=== PATIENT | female | born 1945 | race Caucasian/White ===

== ENCOUNTER 2017-09-07 12:24 | Emergency (ER) | payer OTHER ==
[2017-09-07 13:13] VITALS: BP 146/59; PULSE 74; TEMP 98.5; BMI 21.9
--- NOTE | 2017-09-07 13:44 | PDOC ---
History of Present Illness - General Chief Complaint: Toothache Stated Complaint: EAR PAIN Time Seen by Provider: 09/07/17 13:40 History Source: Patient Exam Limitations: No Limitations - History of Present Illness Initial Comments: 09/07/17 14:07 c/op qworsening paijn to lower right jaw/ molars. Has extensive dental issue/ pain from months of upper denture incorrect placements. States has had multiple visits to orhtodontist/ but now lower teeth are becoming painful. With particular tenderness along lower first right molar\. No fevers/ no recent dental injury. Has been using 600mg Ibuprofen Timing/Duration: unsure Associated Symptoms: reports: denies symptoms, fever/chills Past History - Travel Traveled outside of the country in the last 30 days: No Close contact w/someone who was outside of country & ill: No - Past Medical History Allergies/Adverse Reactions: Allergies Allergy/AdvReac Type Severity Reaction Status Date / Time No Known Allergies Allergy Verified 09/07/17 13:08 Home Medications: Ambulatory Orders Aspirin Coated [Ecotrin -] 81 mg PO DAILY 10/13/15 Atorvastatin Ca [Lipitor] 20 mg PO HS 10/13/15 Bupropion HCl [Wellbutrin Xl -] 300 mg PO DAILY 10/13/15 Fluoxetine HCl 40 mg PO DAILY 10/13/15 Metoprolol Succinate [Toprol XL -] 25 mg PO DAILY 10/13/15 Clindamycin [Cleocin -] 300 mg PO TID #21 capsule 09/07/17 Naproxen [Naprosyn -] 500 mg PO TID #30 tablet 09/07/17 Cardiac Disorders: Yes (TACHYCARDIA) GI Disorders: Yes Hypercholesterolemia: Yes - Surgical History Appendectomy: Yes Orthopedic Surgery: Yes (RT ANKLE SX) - Suicide/Smoking/Psychosocial Hx Smoking Status: Yes Smoking History: Former smoker Have you smoked in the past 12 months: No Number of Cigarettes Smoked Daily: 0 If you are a former smoker, when did you quit?: 1991 Information on smoking cessation initiated: No Hx Alcohol Use: No Drug/Substance Use Hx: No Substance Use Type: None Review of Systems - Review of Systems Able to Perform ROS?: Yes Is the patient limited Syriac proficient: Yes Constitutional: Yes: Symptoms Reported, See HPI, Malaise HEENTM: Yes: Symptoms Reported, See HPI, Ear Pain, Mouth Pain, Mouth Swelling Respiratory: No: Symptoms reported Cardiac (ROS): No: Symptoms Reported ABD/GI: No: Symptoms Reported : No: Symptoms Reported Integumentary: No: Symptoms Reported All Other Systems: Reviewed and Negative *Physical Exam - Vital Signs Last Vital Signs Temp Pulse Resp BP Pulse Ox 98.5 F 74 16 146/59 99 09/07/17 12:55 09/07/17 12:55 09/07/17 12:55 09/07/17 12:55 09/07/17 12:55 - Physical Exam General Appearance: Yes: Nourished, Appropriately Dressed, Apparent Distress, Mild Distress HEENT: positive: EOMI, JEANNE, Normal ENT Inspection, TMs Normal, Pharynx Normal, Nasal Congestion, Rhinorrhea. negative: Sinus Tenderness Neck: positive: Supple, Lymphadenopathy (R), Lymphadenopathy (L). negative: Tender Respiratory/Chest: positive: Lungs Clear, Normal Breath Sounds Gastrointestinal/Abdominal: positive: Soft. 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 NML intact, Fully Oriented, Alert, Normal Mood/ Affect, Normal Response, Motor Strength 5/5 *DC/Admit/Observation/Transfer Diagnosis at time of Disposition: Toothache - Discharge Dispostion Disposition: HOME Condition at time of disposition: Stable Decision to Admit order: No - Referrals Referrals: Eriberto Conteh MD [Primary Care Provider] - - Patient Instructions Printed Discharge Instructions: DI for Dental Pain Additional Instructions: Rest, drink lots of fluids: Teas, water, soups Saltwater gargles/ keep mouth clean and rinse after each meal May use wet teabag for pain relief to area Avoid hard chewing foods, stick to ice cream, Jell-O, yogurt etc. Tylenol or Motrin for fever and pain Complete all medication as prescribed Seek dental appointment as soon as possible for evaluation of dental injury/pain Followup with private physician in one to 2 days as needed Return to emergency department for worsened symptoms, fevers, swelling to face or worsened pain - Post Discharge Activity Forms/Work/School Notes: Back to Work
== END 2017-09-07 14:22 | disposition home or self-care (01) ==
LOC: JERFT 12:24
DX: K08.89 Other specified disorders of teeth and supporting structures (principal); E78.00 Pure hypercholesterolemia, unspecified; Z86.19 Personal history of other infectious and parasitic diseases; Z86.79 Personal history of other diseases of the circulatory system
CPT/HCPCS: 99281-25

== ENCOUNTER 2018-01-21 11:22 | Inpatient (IN) | payer OTHER ==
[2018-01-21 11:32] VITALS: BMI 19.6
[2018-01-21] MEDS ORDERED: ASPIRIN 81 MG CHEWABLE TABLETS PO ONE (11:44)
--- NOTE | 2018-01-21 11:44 | PDOC ---
History of Present Illness - General Chief Complaint: Chest Pain Stated Complaint: CHEST PAIN, SOB Time Seen by Provider: 01/21/18 11:44 History Source: Patient Exam Limitations: No Limitations - History of Present Illness Initial Comments: 01/21/18 11:54 72y F hx of CAD sp cath in 10/2017, HL, deperssion sent to the ED byd Dr. barragan for evaluation for sob and cp. s with sob x 1 month and cp x 2 weeks. The sob is constant, and worsens with exertion. pt notes her CP is constant, substernal and causes her pain. Does not seem to wrosen with exertion. Pt notes this started after her stent but never had these syp,toms prior to her stent. pt denies any fever/chills, cough, vomiting, diaphoresis, hemoptysis, leg swelling. . Pt notes her symptoms seem to be gradually getting worse PMD: Yady Card: Alexandra Past History - Past Medical History Allergies/Adverse Reactions: Allergies Allergy/AdvReac Type Severity Reaction Status Date / Time No Known Allergies Allergy Verified 01/21/18 11:27 Home Medications: Ambulatory Orders Aspirin Coated [Ecotrin -] 81 mg PO DAILY 10/13/15 Atorvastatin Ca [Lipitor] 80 mg PO HS 10/13/15 Bupropion HCl [Wellbutrin Xl -] 300 mg PO DAILY 10/13/15 Fluoxetine HCl 40 mg PO DAILY 10/13/15 Metoprolol Succinate [Toprol XL -] 25 mg PO DAILY 10/13/15 Ticagrelor [Brilinta] 90 mg PO 01/21/18 Cardiac Disorders: Yes (TACHYCARDIA) COPD: No GI Disorders: Yes Hypercholesterolemia: Yes Psychiatric Problems: Yes (depression/anxiety) - Surgical History Appendectomy: Yes Cardiac Surgery: (stent) Orthopedic Surgery: Yes (RT ANKLE SX) - Immunization History Immunization Up to Date: Yes - Suicide/Smoking/Psychosocial Hx Smoking Status: Yes Smoking History: Never smoked Have you smoked in the past 12 months: No Number of Cigarettes Smoked Daily: 0 If you are a former smoker, when did you quit?: 1991 Information on smoking cessation initiated: No Hx Alcohol Use: No Drug/Substance Use Hx: No Substance Use Type: None Hx Substance Use Treatment: No Review of Systems - Review of Systems Able to Perform ROS?: Yes Comments:: 01/21/18 12:08 Constitutional - no reported Fever, Chills, HEENT: no reported vision changes, sore throat Respiratory: = sob, RICHARD no reported cough, hemoptysis Cardiac: + chest pain no reported , palpitations, light headedness, leg swelling Abd/GI: no reported abd pain, nausea, vomiting, blood per rectum, melena, diarrhea : no reported dysuria, frequency, discharge Musculskelatal - no reported back pain, joint swelling skin - no reported bruising, erythema, rash neurological: no reported headache, numbness, focal weakness, tingling, ataxia, hematologic: no reported easy bruising, easy bleeding *Physical Exam - Vital Signs Last Vital Signs Temp Pulse Resp BP Pulse Ox 97.7 F 94 H 16 133/87 100 01/21/18 11:27 01/21/18 12:18 01/21/18 12:10 01/21/18 12:10 01/21/18 12:18 - Physical Exam Comments: 01/21/18 12:09 GENERAL: The patient is awake, alert, and fully oriented, Nontoxic - in no acute distress. HEAD: Normocephalic, atraumatic. EYES: extraocular movements intact, sclera anicteric, conjunctiva clear. ENT: Normal voice, Moist mucous membranes. NECK: Normal range of motion, supple LUNGS: Breath sounds equal, clear to auscultation bilaterally. No wheezes, no rhonchi, no rales. HEART: Regular rate and rhythm, normal S1 and S2 without murmur, rub or gallop. ABDOMEN: Soft, nontender, No guarding, no rebound. . No CVA tenderness EXTREMITIES: Normal range of motion, no edema. negative Homans b/l NEUROLOGICAL: No facial assymetry, Normal speech, PSYCH: Normal mood, normal affect. SKIN: Warm, Dry, normal turgor, Heart Score/ECG Review - ECG Impressions Comment:: 01/21/18 13:46 Twelve-lead EKG was performed and reviewed by me. There is normal sinus rhythm with a rate of 103 The axis is normal. Nonspecific ST-T wave changes ED Treatment Course - LABORATORY CBC & Chemistry Diagram: 01/21/18 12:06 01/21/18 12:06 - ADDITIONAL ORDERS Additional order review: Laboratory Results 01/21/18 01/21/18 12:06 12:06 PT with INR 11.00 INR 0.93 Sodium 140 Potassium 4.3 Chloride 108 H Carbon Dioxide 18 L Anion Gap 15 BUN 15 Creatinine 1.2 Creat Clearance w eGFR 44.16 Random Glucose 81 Calcium 9.8 Magnesium 1.9 Total Bilirubin 0.6 AST 21 ALT 25 Alkaline Phosphatase 118 H Creatine Kinase 85 Troponin I < 0.02 Total Protein 6.9 Albumin 3.8 01/21/18 12:06 RBC 4.42 MCV 90.4 MCHC 32.2 RDW 14.8 MPV 8.7 Neutrophils % 78.5 D Lymphocytes % 10.8 D Monocytes % 7.2 Eosinophils % 2.9 Basophils % 0.6 - RADIOLOGY Radiology Studies Ordered: Category Date Time Status CHEST PA & LAT [RAD] Stat Radiology 01/21/18 11:44 Taken - Medications Given in the ED: ED Medications Discontinued Medications Generic Name Dose Route Start Last Admin Trade Name Freq PRN Reason Stop Dose Admin Albuterol Sulfate 1 amp 01/21/18 12:10 01/21/18 12:30 Ventolin 0.083% Nebulizer Soln - NEB 01/21/18 12:11 1 amp ONCE ONE Administration Aspirin 162 mg 01/21/18 11:44 01/21/18 12:30 Asa - PO 01/21/18 11:45 162 mg ONCE ONE Administration Medical Decision Making - Medical Decision Making 01/21/18 13:41 trops neg will consult cardiology will admit for further management 01/21/18 13:[address] castillo agree admission for further management of sob, cp Case discussed in detail with admitting physician including history, physical exam and ancillary studies. Admitting physician has assumed care for the patient, will follow all pending diagnostics and will complete the evaluation and treatment. *DC/Admit/Observation/Transfer Diagnosis at time of Disposition: Shortness of breath Chest pain Qualifiers: Chest pain type: unspecified Qualified Code(s): R07.9 - Chest pain, unspecified - Discharge Dispostion Condition at time of disposition: Guarded Decision to Admit order: Yes - Referrals Referrals: Eriberto Castillo MD [Primary Care Provider] - - Patient Instructions - Post Discharge Activity
[2018-01-21] MEDS ORDERED: ALBUTEROL SO4 0.083% IH SOL 2.5 MG/3 ML VIAL.NEB. NEB ONE ×2 (12:10→12:25)
[2018-01-21 12:13] LABS: BASO % 0.6 % (0-2.0); EOS % 2.9 % (0-4.5); HEMATOCRIT 39.9 % (32.4-45.2); HEMOGLOBIN 12.9 GM/dL (10.7-15.3); LYMPH % 10.8 % (8-40); MCH 29.1 pg (25.7-33.7); MCHC 32.2 g/dl (32.0-36.0); MEAN CELL VOLUME 90.4 fl (80-96); MEAN PLT VOLUME 8.7 fl (7.5-11.1); MONO % 7.2 % (3.8-10.2); NEUT % 78.5 % (42.8-82.8); PLATELET COUNT 319 K/MM3 (134-434); RBC 4.42 M/mm3 (3.60-5.2); RDW 14.8 % (11.6-15.6); WHITE BLOOD COUNT 9.3 K/mm3 (4.0-10.0)
[2018-01-21] MEDS ORDERED: ASPIRIN 81 MG CHEWABLE TABLETS ONE (12:25)
[2018-01-21 12:41] LABS: INR 0.93 (0.83-1.09)
[2018-01-21 12:54] LABS: ALBUMIN 3.8 g/dl (3.4-5.0); ALK PHOS 118 U/L (45-117); ANION GAP 15 MMOL/L (8-16); BILIRUBIN,TOTAL 0.6 mg/dL (0.2-1); BLOOD UREA NITROGEN 15 mg/dL (7-18); CALCIUM 9.8 mg/dL (8.5-10.1); CHLORIDE 108 mmol/L (98-107); CO2 18 mmol/L (21-32); CREATININE 1.2 mg/dL (0.55-1.3); GLUCOSE,RANDOM 81 mg/dL (74-106); MAGNESIUM 1.9 mg/dL (1.8-2.4); POTASSIUM 4.3 mmol/L (3.5-5.1); SGOT/AST 21 U/L (15-37); SGPT/ALT 25 U/L (13-61); SODIUM 140 mmol/L (136-145); TOT PROT 6.9 g/dl (6.4-8.2)
--- NOTE | 2018-01-21 15:09 | CON.CARD ---
Consult Consult Specialty:: Cardiology Referred by:: Dr Conteh Reason for Consultation:: chest pain - History of Present Illness Chief Complaint: chest pain History of Present Illness: She is a 72 year old female with a PMH significant for HLD, HTN, CAD s/p NStemi 10/25/17 transferred to [facility] for cath underwent JOYCE to RCA 10/26/17, tremor who has been having several weeks of continuous chest pain, retrosternal non exertional , non radiating without change from position, inspiration or paluation as well as difficulty breathing that is also nonexertional. No fever, chills, cough or sputum. Echo 10/25/17 normal EF. - History Source History Provided By: Patient, Medical Record - Alcohol/Substance Use Hx Alcohol Use: No - Smoking History Smoking history: Never smoked Have you smoked in the past 12 months: No Aproximately how many cigarettes per day: 0 If you are a former smoker, when did you quit?: 1991 Home Medications - Allergies Allergies/Adverse Reactions: Allergies Allergy/AdvReac Type Severity Reaction Status Date / Time No Known Allergies Allergy Verified 01/21/18 11:27 - Home Medications Home Medications: Ambulatory Orders Aspirin Coated [Ecotrin -] 81 mg PO DAILY 10/13/15 Atorvastatin Ca [Lipitor] 80 mg PO HS 10/13/15 Bupropion HCl [Wellbutrin Xl -] 300 mg PO DAILY 10/13/15 Fluoxetine HCl 40 mg PO DAILY 10/13/15 Metoprolol Succinate [Toprol XL -] 25 mg PO DAILY 10/13/15 Ticagrelor [Brilinta] 90 mg PO DAILY 01/21/18 Vital Signs: Vital Signs Temperature 97.7 F 01/21/18 11:27 Pulse Rate 94 H 01/21/18 12:18 Respiratory Rate 16 01/21/18 12:10 Blood Pressure 133/87 01/21/18 12:10 O2 Sat by Pulse Oximetry (%) 100 01/21/18 12:18 - Other Data Labs, Other Data: CBC, BMP 01/21/18 12:06 01/21/18 12:06 INR, PTT INR 0.93 (0.83-1.09) 01/21/18 12:06 Troponin, BNP 01/21/18 12:06 Troponin I < 0.02 Troponin, BNP 01/21/18 12:06 Troponin I < 0.02 Imaging - Results Chest X-ray: Report Reviewed EKG: Report Reviewed (no change from 10/25/17) Assessment/Plan She is a 72 year old female with a PMH significant for HLD, HTN, CAD s/p NSTEMI 10/25/17 transferred to [facility] for cath underwent JOYCE to RCA 10/26/17, tremor who has been having several weeks of continuous chest pain, retrosternal non exertional , non radiating without change from position, inspiration or paluation as well as difficulty breathing that is also nonexertional. No fever, chills, cough or sputum. Echo 10/25/17 normal EF. Plan: 1. CAD-continue asa and plavix. Her chest pain is atypical for angina, first set kobe negative. -low risk given the chronicity of symptoms. -ECG is abnormal but unchanged. -continue outpatient regimen for now. -she has 50% stenosis of the LAD, continue statin. 2. shortness of breath- CXR and pro bnp unremarkable, no evidence of CHF. -consider pulm eval and CTA
[2018-01-21 16:23] LABS: ALBUMIN 3.5 g/dl (3.4-5.0); ALK PHOS 107 U/L (45-117); ANION GAP 10 MMOL/L (8-16); BILIRUBIN,TOTAL 0.6 mg/dL (0.2-1); BLOOD UREA NITROGEN 17 mg/dL (7-18); CALCIUM 9.3 mg/dL (8.5-10.1); CHLORIDE 106 mmol/L (98-107); CO2 23 mmol/L (21-32); CREATININE 1.2 mg/dL (0.55-1.3); GLUCOSE,RANDOM 107 mg/dL (74-106); N-TERMINAL BNP 223.3 pg/ml (5-125); POTASSIUM 3.8 mmol/L (3.5-5.1); SGOT/AST 19 U/L (15-37); SGPT/ALT 23 U/L (13-61); SODIUM 138 mmol/L (136-145); TOT PROT 6.5 g/dl (6.4-8.2)
[2018-01-21] MEDS: ATORVASTATIN CA 80 MG TABLET (FP) PO SCH (21:50)
[2018-01-22] MEDS ORDERED: ACETAMINOPHEN 325 MG TABLET (FP) ONE (02:40)
[2018-01-22] MEDS ORDERED: ACETAMINOPHEN 650 MG/20.3 ML ORAL SOLUTION (CUPS) PO ONE (02:42)
[2018-01-22 06:47] LABS: BASO % 0.8 % (0-2.0); EOS % 3.5 % (0-4.5); HEMATOCRIT 36.3 % (32.4-45.2); HEMOGLOBIN 11.9 GM/dL (10.7-15.3); MCH 29.4 pg (25.7-33.7); MCHC 32.8 g/dl (32.0-36.0); MEAN CELL VOLUME 89.6 fl (80-96); MEAN PLT VOLUME 9.1 fl (7.5-11.1); MONO % 10.3 % (3.8-10.2); NEUT % 68.4 % (42.8-82.8); PLATELET COUNT 272 K/MM3 (134-434); RBC 4.05 M/mm3 (3.60-5.2); RDW 14.3 % (11.6-15.6); WHITE BLOOD COUNT 9.6 K/mm3 (4.0-10.0)
--- NOTE | 2018-01-22 08:55 | HP ---
Admitting History and Physical - Admission History of Present Illness: 72 year old female with a PMH significant for HLD, HTN, CAD s/p NStemi 10/25/17 transferred to [facility] for cath underwent JOYCE to RCA 10/26/17, tremor who has been having several weeks of continuous chest pain, retrosternal non exertional, non radiating without change from position, inspiration or paluation as well as difficulty breathing that is also nonexertional. No fever, chills, cough or sputum. Echo 10/25/17 normal EF. - Past Medical History Cardiovascular: Yes: CAD (50% lad), HTN, Hyperlipdemia Pulmonary: Yes: COPD - Smoking History Smoking history: Never smoked Have you smoked in the past 12 months: No Aproximately how many cigarettes per day: 0 If you are a former smoker, when did you quit?: 1991 - Alcohol/Substance Use Hx Alcohol Use: No Home Medications - Allergies Allergies/Adverse Reactions: Allergies Allergy/AdvReac Type Severity Reaction Status Date / Time No Known Allergies Allergy Verified 01/21/18 11:27 - Home Medications Home Medications: Ambulatory Orders Aspirin Coated [Ecotrin -] 81 mg PO DAILY 10/13/15 Atorvastatin Ca [Lipitor] 80 mg PO HS 10/13/15 Bupropion HCl [Wellbutrin Xl -] 300 mg PO DAILY 10/13/15 Fluoxetine HCl 40 mg PO DAILY 10/13/15 Metoprolol Tartrate [Lopressor -] 25 mg PO BID 01/21/18 Ticagrelor [Brilinta] 90 mg PO BID 01/21/18 Review of Systems - Review of Systems Constitutional: reports: Weakness Cardiovascular: reports: Chest Pain Respiratory: reports: SOB, SOB on Exertion Gastrointestinal: reports: Nausea. denies: Abdominal Pain Genitourinary: reports: No Symptoms Musculoskeletal: reports: Muscle Weakness Neurological: reports: Tremors, Weakness Physical Examination Vital Signs: Vital Signs Temperature 98.7 F 01/22/18 08:46 Pulse Rate 77 01/22/18 08:46 Respiratory Rate 19 01/22/18 08:46 Blood Pressure 121/58 L 01/22/18 08:46 O2 Sat by Pulse Oximetry (%) 100 01/22/18 08:46 Cardiovascular: Yes: Murmur, S1, S2 Respiratory: Yes: Regular, CTA Bilaterally Gastrointestinal: Yes: Normal Bowel Sounds, Soft Edema: No Neurological: Yes: Alert, Oriented, Tremors, Unsteady Gait, Weakness Labs: CBC, BMP 01/22/18 05:30 01/21/18 15:23 Problem List - Problems (1) CAD (coronary artery disease) Assessment/Plan: -Cradio consult noted -Follow CE 2 sets neg -Echo -Same meds Code(s): I25.10 - ATHSCL HEART DISEASE OF [place] CORONARY ARTERY W/O ANG PCTRS (2) HLD (hyperlipidemia) Assessment/Plan: -Lipitor 80 -Pt ran out of meds--compliance stressed Code(s): E78.5 - HYPERLIPIDEMIA, UNSPECIFIED (3) Tremors of nervous system Assessment/Plan: -TFT -NEURO Code(s): R25.1 - TREMOR, UNSPECIFIED (4) Weakness Assessment/Plan: -PT Eval Code(s): R53.1 - WEAKNESS (5) Chest pain Assessment/Plan: -cardio noted -Monitor on tele -Add Ranexa Code(s): R07.9 - CHEST PAIN, UNSPECIFIED Qualifiers: Chest pain type: unspecified Qualified Code(s): R07.9 - Chest pain, unspecified (6) COPD (chronic obstructive pulmonary disease) Assessment/Plan: -add Symbocort -PULM Code(s): J44.9 - CHRONIC OBSTRUCTIVE PULMONARY DISEASE, UNSPECIFIED
[2018-01-22] MEDS: FLUoxetine HCL 20 MG CAPSULE (FP) PO SCH (09:48)
[2018-01-22] MEDS: TICAGRELOR 90 MG TABLET PO SCH ×3 (09:48→22:19)
[2018-01-22] MEDS: METOPROLOL TARTRATE 25 MG TABLET (FP) PO SCH ×3 (09:48→21:38)
[2018-01-22] MEDS: ASPIRIN COATED 81 MG TABLET.EC PO SCH (09:48)
[2018-01-22] MEDS ORDERED: TICAGRELOR 90 MG TABLET PO SCH (10:00)
[2018-01-22] MEDS ORDERED: metoPROLOL SUCCINATE 25 MG TAB.SR.24H (FP) PO SCH (10:00)
--- NOTE | 2018-01-22 10:10 | PN ---
Progress Note, Physician Chief Complaint: still with sob, constant chest pain telemetry nsr History of Present Illness: She is a 72 year old female with a PMH significant for HLD, HTN, CAD s/p NStemi 10/25/17 transferred to [facility] for cath underwent JOYCE to RCA 10/26/17, tremor who has been having several weeks of continuous chest pain, retrosternal non exertional , non radiating without change from position, inspiration or paluation as well as difficulty breathing that is also nonexertional. No fever, chills, cough or sputum. Echo 10/25/17 normal EF. CTA 01/21/18 no PE. +interstitial markings and ground glass appearance. - Current Medication List Current Medications: Active Medications Aspirin (Ecotrin -) 81 mg PO DAILY [facility] Last Admin: 01/22/18 09:48 Dose: 81 mg Atorvastatin Calcium (Lipitor -) 80 mg PO HS [facility] Last Admin: 01/21/18 21:50 Dose: 80 mg Budesonide/Formoterol Fumarate (Symbicort 160/4.5mcg -) 2 puff IH BID [facility] Bupropion HCl (Wellbutrin Xl -) 300 mg PO DAILY [facility] Last Admin: 01/22/18 09:48 Dose: 300 mg Fluoxetine HCl (Prozac -) 40 mg PO DAILY [facility] Last Admin: 01/22/18 09:48 Dose: 40 mg Metoprolol Tartrate (Lopressor -) 25 mg PO BID [facility] Last Admin: 01/22/18 09:48 Dose: 25 mg Ranolazine (Ranexa -) 500 mg PO BID [facility] Ticagrelor (Brilinta -) 90 mg PO BID [facility] Last Admin: 01/22/18 09:48 Dose: 90 mg - Objective Vital Signs: Vital Signs Temperature 98.7 F 01/22/18 08:46 Pulse Rate 77 01/22/18 08:46 Respiratory Rate 19 01/22/18 08:46 Blood Pressure 121/58 L 01/22/18 08:46 O2 Sat by Pulse Oximetry (%) 100 01/22/18 08:46 Constitutional: Yes: No Distress, Calm Eyes: Yes: EOM Intact HENT: Yes: Normocephalic Neck: Yes: Trachea Midline Cardiovascular: Yes: Regular Rate and Rhythm Respiratory: Yes: CTA Bilaterally Gastrointestinal: Yes: Normal Bowel Sounds, Soft Musculoskeletal: Yes: WNL Extremities: Yes: WNL Edema: No Peripheral Pulses WNL: Yes Labs: CBC, BMP 01/22/18 05:30 01/21/18 15:23 INR, PTT INR 0.93 (0.83-1.09) 01/21/18 12:06 Assessment/Plan She is a 72 year old female with a PMH significant for HLD, HTN, CAD s/p NSTEMI 10/25/17 transferred to [facility] for cath underwent JOYCE to RCA 10/26/17, tremor who has been having several weeks of continuous chest pain, retrosternal non exertional , non radiating without change from position, inspiration or paluation as well as difficulty breathing that is also nonexertional. No fever, chills, cough or sputum. Echo 10/25/17 normal EF. Plan: 1. CAD-continue asa and plavix. Her chest pain is atypical for angina, first set kobe negative. -low risk given the chronicity of symptoms. -ECG is abnormal but unchanged. -continue outpatient regimen for now. -she has 50% stenosis of the LAD, continue statin. -kobe negative for ACS. No need for telemetry monitoring. 2. shortness of breath- CXR and pro bnp unremarkable, no evidence of CHF. -consider pulm eval -CTA negative for PE.
--- NOTE | 2018-01-22 10:45 | EKG ---
Test Reason : Blood Pressure : / mmHG Vent. Rate : 103 BPM Atrial Rate : 103 BPM P-R Int : 122 ms QRS Dur : 078 ms QT Int : 352 ms P-R-T Axes : 069 082 067 degrees QTc Int : 461 ms POOR DATA QUALITY, INTERPRETATION MAY BE ADVERSELY AFFECTED SINUS TACHYCARDIA POSSIBLE LEFT ATRIAL ENLARGEMENT NONSPECIFIC ST AND T WAVE ABNORMALITY ABNORMAL ECG Confirmed by Lyle Goddard MD ([id number]) on 01/22/2018 10:45:09 AM Referred By: Confirmed By:Lyle Goddard MD
[2018-01-22] MEDS: BUDESONIDE/FORMETEROL FUMARATE 160/4.5 mcg INHALER IH SCH ×2 (11:09→21:39)
[2018-01-22] MEDS: RANOLAZINE E.R. 500 MG TABLET (FP) PO SCH ×2 (11:10→21:38)
--- NOTE | 2018-01-22 13:25 | ECHO ---
Name: EUSEBIO CARABALLO Exam:Adult Echocardiogram Study Date: 01/22/2018 12:22 PM Age: 72 yrs Reason For Study: CAD SOB Height: 61 in Weight: 104 lb BSA: 1.4 m2 MMode/2D Measurements & Calculations IVSd: 0.78 cm Ao root diam: 2.6 cm LVIDd: 4.0 cm LA dimension: 3.1 cm LVIDs: 2.9 cm LVPWd: 0.73 cm EDV(Teich): 71.8 ml TAPSE: 1.9 cm ESV(Teich): 30.9 ml RV S Sharif: 12.8 cm/sec Doppler Measurements & Calculations MV E max sharif: 52.0 cm/sec Ao V2 max: 110.5 cm/sec MV A max sharif: 81.0 cm/sec Ao max P.9 mmHg MV E/A: 0.64 MV dec time: 0.23 sec LV V1 max P.4 mmHg TR max sharif: 205.2 cm/sec LV V1 max: 59.3 cm/sec TR max P.9 mmHg PI end-d sharif: 120.2 cm/sec Med Peak E' Sharif: 5.3 cm/sec Med E/e': 9.7 Lat Peak E' Sharif: 6.2 cm/sec Lat E/e': 8.4 Procedure A complete two-dimensional transthoracic echocardiogram was performed (2D, M-mode, Doppler and color flow Doppler). Left Ventricle The left ventricular size, thickness and function are normal. Ejection Fraction = 65%. The transmitra l spectral Doppler flow pattern is suggestive of impaired LV relaxation. The left ventricular wall jozef on is normal. Right Ventricle The right ventricle is normal in size and function. Atria Normal left and right atrial size and function. Mitral Valve The mitral valve is grossly normal. There is trace mitral regurgitation. Tricuspid Valve The tricuspid valve is normal. There is trace tricuspid regurgitation. Right ventricular systolic pre ssure is 16.9 mmhg. Aortic Valve There is trivial aortic sclerosis.;. Pulmonic Valve The pulmonic valve is not well seen, but is grossly normal. Great Vessels The aortic root is normal size. Pericardium/Pleura There is no pericardial effusion. There is no pleural effusion. Interpretation Summary Compared to the prior echo report on 10/25/17, there is no significant change. The left ventricular siz e, thickness and function are normal Ejection Fraction = 65%. There is trace mitral regurgitation. There is trace tricuspid regurgitation. Right ventricular systolic pressure is 16.9 mmhg. MD Lyle Goddard 01/22/2018 01:25 PM
--- NOTE | 2018-01-22 13:36 | CONSULT ---
Consult Consult Specialty:: PM&R - History of Present Illness History of Present Illness: This is a 72 year old woman with a medical history of CAD, NSTEMI 10/25/17, HTN, HLD, tremor, who presented to the ED 01/21/18 with continuous retrosternal chest pain and SOB. 01/22/18 echo was stable compared to 10/25/17, with EF 65%. CTA chest showed moderate chronic lung disease without acute pathology, and CT head showed no acute pathology with moderate atrophy and minimal periventricular chronic microvascular ischemic disease. She was admitted to the ICU for further work-up. Physiatry is being consulted for further recommendations. - Past Medical History Cardio/Vascular: Yes: CAD (50% lad), HTN, Hyperlipdemia Pulmonary: Yes: COPD - Alcohol/Substance Use Hx Alcohol Use: No - Smoking History Smoking history: Never smoked Have you smoked in the past 12 months: No Aproximately how many cigarettes per day: 0 If you are a former smoker, when did you quit?: 1991 - Social History Usual Living Arrangement: Alone (lives alone in senior building without stairs to elevator) ADL: Independent (Independent in ADLs/ IADLs without AD) Home Medications - Allergies Allergies/Adverse Reactions: Allergies Allergy/AdvReac Type Severity Reaction Status Date / Time No Known Allergies Allergy Verified 01/21/18 11:27 - Home Medications Home Medications: Ambulatory Orders Aspirin Coated [Ecotrin -] 81 mg PO DAILY 10/13/15 Atorvastatin Ca [Lipitor] 80 mg PO HS 10/13/15 Bupropion HCl [Wellbutrin Xl -] 300 mg PO DAILY 10/13/15 Fluoxetine HCl 40 mg PO DAILY 10/13/15 Metoprolol Tartrate [Lopressor -] 25 mg PO BID 01/21/18 Ticagrelor [Brilinta] 90 mg PO BID 01/21/18 Review of Systems Findings/Remarks: denies fevers, chills, changes in vision/ hearing/ mood, abdominal pain, nausea , vomiting, constipation, diarrhea, dysuria, muscle/ joint pain, numbness/ paresthesias. notes resolved CP, improving SOB, and chronic unchanged tremors which improved Physical Exam Vital Signs: Vital Signs Temperature 98.6 F 01/22/18 13:21 Pulse Rate 74 01/22/18 13:21 Respiratory Rate 18 01/22/18 13:21 Blood Pressure 96/78 01/22/18 13:21 O2 Sat by Pulse Oximetry (%) 100 01/22/18 08:46 Musculoskeletal: Yes: Other (General: calm elderly F sitting EOB NAD, able to Sit--> Stand from EOB Independently and ambulate a few feet in room, limited by BP cuff and Telemetry leads N/M: full BUE/ BLE ROM, 4+/5 B HF then 5- /5 BUE/ BLE; Pinprick Intact BUE/ BLE Extremities: no BLE pitting edema, no B calf tenderness) Labs: CBC, BMP 01/22/18 05:30 01/21/18 15:23 Imaging - Results Cat Scan: Report Reviewed (CT head, CTA chest as per HPI) Other: Report Reviewed (01/22/18 echo as per HPI) Assessment/Plan Impression: 1) Deconditioning 2) Chest pain now resolved, with hx CAD, NSTEMI 10/25/17, HTN, HLD and EF 65% 3) SOB improving< with hx COPD 4) hx tremor 5) CT head shows moderate atrophy and minimal periventricular chronic microvascular ischemic disease 6) BMI WNL 7) No recent flu shot/ pneumovax Recommendations: 1) PT for strengthening and functional mobility 2) Cardiopulmonary precautions 3) Falls, safety precautions 4) DVT ppx: encourage ambulation 5) Denies constipation on current bowel regimen 6) Skin protection: float heels, frequent turning 7) Discharge planning: she will likely be able to return home with home services once medically stable, although she is amenable to inpatient rehabilitation if needed Thank you for this referral.
--- NOTE | 2018-01-22 13:56 | CON.PULM ---
Consult Consult Specialty:: PULMONARY Referred by:: Dr. Conteh Reason for Consultation:: shortness of breath - History of Present Illness Chief Complaint: shortness of breath History of Present Illness: 72yo female with h/o HTN, hyperlipidemia, CAD s/p NSTEMI with recent stents who was admitted with chest discomfort and shortness of breath x weeks. Denies cough or wheezing. No fevers, chills or sweats. No sick contacts. Denies any history of asthma or COPD. No occupational exposures. She is a remote smoker, quit 30 years ago. She does report improvement with nebulizer treatments. - History Source History Provided By: Patient, Medical Record Limitations to Obtaining History: No Limitations - Past Medical History Cardio/Vascular: Yes: CAD (50% lad), HTN, Hyperlipdemia Pulmonary: Yes: COPD - Alcohol/Substance Use Hx Alcohol Use: No - Smoking History Smoking history: Never smoked Have you smoked in the past 12 months: No Aproximately how many cigarettes per day: 0 If you are a former smoker, when did you quit?: 1991 - Social History Usual Living Arrangement: Alone (lives alone in senior building without stairs to elevator) ADL: Independent (Independent in ADLs/ IADLs without AD) Home Medications - Allergies Allergies/Adverse Reactions: Allergies Allergy/AdvReac Type Severity Reaction Status Date / Time No Known Allergies Allergy Verified 01/21/18 11:27 - Home Medications Home Medications: Ambulatory Orders Aspirin Coated [Ecotrin -] 81 mg PO DAILY 10/13/15 Atorvastatin Ca [Lipitor] 80 mg PO HS 10/13/15 Bupropion HCl [Wellbutrin Xl -] 300 mg PO DAILY 10/13/15 Fluoxetine HCl 40 mg PO DAILY 10/13/15 Metoprolol Tartrate [Lopressor -] 25 mg PO BID 01/21/18 Ticagrelor [Brilinta] 90 mg PO BID 01/21/18 Review of Systems - Review of Systems Constitutional: reports: Weakness. denies: Chills, Fever Eyes: denies: Recent Change in Vision HENT: denies: Nasal Congestion, Throat Pain Neck: denies: Stiffness, Tenderness Cardiovascular: reports: Chest Pain, Shortness of Breath. denies: Palpitations Respiratory: denies: Cough, Wheezing Gastrointestinal: denies: Abdominal Pain, Nausea, Vomiting Genitourinary: denies: Dysuria, Hematuria Neurological: denies: Dizziness, Headache Endocrine: denies: Unexplained Weight Loss Physical Exam Vital Sings: Vital Signs Temperature 98.6 F 01/22/18 13:21 Pulse Rate 74 01/22/18 13:21 Respiratory Rate 18 01/22/18 13:21 Blood Pressure 96/78 01/22/18 13:21 O2 Sat by Pulse Oximetry (%) 100 01/22/18 08:46 Constitutional: Yes: Calm Eyes: Yes: Conjunctiva Clear, EOM Intact HENT: Yes: Atraumatic, Normocephalic Neck: Yes: Supple, Trachea Midline Cardiovascular: Yes: Regular Rate and Rhythm Respiratory: Yes: Diminished (decreased breath sounds at the bases) ...Clubbing: No Gastrointestinal: Yes: Normal Bowel Sounds, Soft. No: Tenderness Edema: No Neurological: Yes: Alert, Oriented Labs: CBC, BMP 01/22/18 05:30 01/21/18 15:23 Imaging - Results Chest X-ray: Report Reviewed, Image Reviewed Cat Scan: Report Reviewed, Image Reviewed (no infiltrates, chronic lung disease) Problem List - Problems (1) CAD (coronary artery disease) Code(s): I25.10 - ATHSCL HEART DISEASE OF [place] CORONARY ARTERY W/O ANG PCTRS (2) COPD (chronic obstructive pulmonary disease) Code(s): J44.9 - CHRONIC OBSTRUCTIVE PULMONARY DISEASE, UNSPECIFIED (3) Chest pain Code(s): R07.9 - CHEST PAIN, UNSPECIFIED Qualifiers: Chest pain type: unspecified Qualified Code(s): R07.9 - Chest pain, unspecified (4) HLD (hyperlipidemia) Code(s): E78.5 - HYPERLIPIDEMIA, UNSPECIFIED (5) Shortness of breath Code(s): R06.02 - SHORTNESS OF BREATH Assessment/Plan r/o Acute COPD Exacerbation CAD s/p stent HTN Hyperlipidemia - will start short course of empiric steroids given improvement with nebulizer treatments - inhaled bronchodilators standing and PRN - continue cardiac meds - will need outpt PFTs - DVT prophylaxis Thank you for this consult Rodrigo Davenport MD
[2018-01-22] MEDS ORDERED: ALBUTEROL SO4 0.083% IH SOL 2.5 MG/3 ML VIAL.NEB. NEB PRN (13:58)
[2018-01-22] MEDS: methylPREDNISolone NA SUCC 40 MG/1 ML VIAL IVPUSH SCH ×2 (14:51→17:08)
[2018-01-22] MEDS: ALBUTEROL SO4 2.5/IPRATROPIUM 0.5 INH SOL 3 ML VIAL.NEB. NEB SCH ×2 (17:18→21:00)
--- NOTE | 2018-01-22 20:33 | CONSULT ---
Consult - text type - Consultation Consultation Note: NEUROLOGY CONSULTATION is greatly appreciated: This 72 yo RH woman lives alone. PMH sig for HTN, Chol, Osteoporosis, ASHD, s/p ND and s/p Stent (October) and chronic anxiety and depression. Maintained on: Aspirin 81; Atorvastatin; Bupropion 300 mg; Fluoxetine 40 mg; Metoprolol; Ranexa and Ticagrelor. Seen by me 2014 with LBP, leg pain and neck pain. Patient gave h/o chronic tremors at that time. Now patient has had progressive SOB, beginning as exertional dyspnea, started after her ND and stent and has progressed. CTA Neg for PE. Improves with bronchodilators. Now on Ventolyn, Symbicort, Duoneb and solumedrol. CT of head (reviewed): shows mild, diffuse atrophy and microvascular changes. HERON: Thin. No bruits, Cor: Reg. RR=30/min NEURO: Awake, alert. Ox3. Mild OMS with slight diff. with reversals. Recalls 2 of 3 @ 3. No frontal release. Fluent speech. CN: II-XII: Normal Motor: No drift. Severe, rapid (6-8 cps) sustention tremor. No rest tremor or cogwheeling. Normal strength and reflexes. Toes downgoing. Coord: No FTN Dystaxia Sensory: Feels vibration both feet. IMP: Non-focal exam Essential tremor, now increased by steroids and bronchodilators. Suggest: Continue current regimen for dyspnea. Tremor should improve with gradual taper of meds. If it persists, would try Phenobarbital 30 mg qHS. Thank you very much, Singh Menjivar MD
[2018-01-22] MEDS ORDERED: PT OWN MED DRAWER 7, Y5N ONE ×3 (20:44→22:40)
[2018-01-22] MEDS: ATORVASTATIN CA 80 MG TABLET (FP) PO SCH (21:37)
[2018-01-22 22:11] LABS: URINE APPEARANCE CLEAR; URINE BILIRUBIN NEGATIVE (<2.0 mg/dL); URINE COLOR LTYELLOW; URINE GLUCOSE (UA) NEGATIVE (NEGATIVE); URINE KETONE TRACE (NEGATIVE); URINE LEUK ESTERASE TRACE (NEGATIVE); URINE NITRITE NEGATIVE (NEGATIVE); URINE PROTEIN NEGATIVE (NEGATIVE); URINE UROBILINOGEN NEGATIVE mg/dL (0.2-1.0)
[2018-01-22 22:20] LABS: EPI CELLS FEW /HPF (FEW)
[2018-01-23] MEDS: methylPREDNISolone NA SUCC 40 MG/1 ML VIAL IVPUSH SCH ×3 (01:50→17:38)
[2018-01-23] MEDS ORDERED: PT OWN MED DRAWER 7, Y5N ONE ×3 (07:27→17:56)
[2018-01-23] MEDS: ALBUTEROL SO4 2.5/IPRATROPIUM 0.5 INH SOL 3 ML VIAL.NEB. NEB SCH ×4 (07:31→21:00)
--- NOTE | 2018-01-23 09:09 | PN ---
Progress Note, Physician - Current Medication List Current Medications: Active Medications Albuterol Sulfate (Ventolin 0.083% Nebulizer Soln -) 1 amp NEB Q4H PRN PRN Reason: SHORT OF BREATH/WHEEZING Albuterol/Ipratropium (Duoneb -) 1 amp NEB RQID [facility] Last Admin: 01/23/18 07:31 Dose: 1 amp Aspirin (Ecotrin -) 81 mg PO DAILY [facility] Last Admin: 01/22/18 09:48 Dose: 81 mg Atorvastatin Calcium (Lipitor -) 80 mg PO HS [facility] Last Admin: 01/22/18 21:37 Dose: 80 mg Budesonide/Formoterol Fumarate (Symbicort 160/4.5mcg -) 2 puff IH BID [facility] Last Admin: 01/22/18 21:39 Dose: 2 puff Bupropion HCl (Wellbutrin Xl -) 300 mg PO DAILY [facility] Last Admin: 01/22/18 09:48 Dose: 300 mg Fluoxetine HCl (Prozac -) 40 mg PO DAILY [facility] Last Admin: 01/22/18 09:48 Dose: 40 mg Methylprednisolone Sodium Succinate (Solu-Medrol -) 40 mg IVPUSH Q8H-IV [facility] Last Admin: 01/23/18 01:50 Dose: 40 mg Metoprolol Tartrate (Lopressor -) 25 mg PO BID [facility] Last Admin: 01/22/18 21:38 Dose: 25 mg Ranolazine (Ranexa -) 500 mg PO BID [facility] Last Admin: 01/22/18 21:38 Dose: 500 mg Ticagrelor (Brilinta -) 90 mg PO BID [facility] Last Admin: 01/22/18 22:19 Dose: 90 mg - Objective Vital Signs: Vital Signs Temperature 98.4 F 01/23/18 08:55 Pulse Rate 78 01/23/18 08:55 Respiratory Rate 189 H 01/23/18 08:55 Blood Pressure 105/70 01/23/18 08:55 O2 Sat by Pulse Oximetry (%) 100 01/22/18 20:04 Cardiovascular: Yes: Regular Rate and Rhythm Respiratory: Yes: Diminished. No: Wheezes Gastrointestinal: Yes: Normal Bowel Sounds, Soft Labs: CBC, BMP 01/22/18 05:30 01/21/18 15:23 INR, PTT INR 0.93 (0.83-1.09) 01/21/18 12:06 Problem List - Problems (1) CAD (coronary artery disease) Assessment/Plan: -Cradio consult noted -Follow CE 2 sets neg -Echo -Same meds Code(s): I25.10 - ATHSCL HEART DISEASE OF [place] CORONARY ARTERY W/O ANG PCTRS (2) HLD (hyperlipidemia) Assessment/Plan: -Lipitor 80 -Pt ran out of meds--compliance stressed Code(s): E78.5 - HYPERLIPIDEMIA, UNSPECIFIED (3) Tremors of nervous system Assessment/Plan: -TFT -NEURO Code(s): R25.1 - TREMOR, UNSPECIFIED (4) Weakness Assessment/Plan: -PT Eval -CCC--SNF EVAL Code(s): R53.1 - WEAKNESS (5) Chest pain Assessment/Plan: -cardio noted -Monitor on tele -Add Ranexa Code(s): R07.9 - CHEST PAIN, UNSPECIFIED Qualifiers: Chest pain type: unspecified Qualified Code(s): R07.9 - Chest pain, unspecified (6) COPD (chronic obstructive pulmonary disease) Assessment/Plan: -add Symbocort -PULM -STEROIDS Code(s): J44.9 - CHRONIC OBSTRUCTIVE PULMONARY DISEASE, UNSPECIFIED
[2018-01-23] MEDS: TICAGRELOR 90 MG TABLET PO SCH ×2 (09:48→21:35)
[2018-01-23] MEDS: METOPROLOL TARTRATE 25 MG TABLET (FP) PO SCH ×2 (09:49→21:37)
[2018-01-23] MEDS: ASPIRIN COATED 81 MG TABLET.EC PO SCH (09:49)
[2018-01-23] MEDS: BUDESONIDE/FORMETEROL FUMARATE 160/4.5 mcg INHALER IH SCH ×2 (09:50→21:36)
[2018-01-23] MEDS: FLUoxetine HCL 20 MG CAPSULE (FP) PO SCH (09:51)
[2018-01-23] MEDS: RANOLAZINE E.R. 500 MG TABLET (FP) PO SCH ×2 (10:10→21:36)
--- NOTE | 2018-01-23 12:54 | PN ---
Progress Note (short form) - Note Progress Note: PULMONARY Feels better today. Short of breath this AM. Feels improvement with nebulizer treatments. Vital Signs Period Temp Pulse Resp BP Sys/Gu Pulse Ox Last 24 Hr 97.8 F-98.6 F 74-84 16-189 96-124/48-78 100-100 Gen: NAD at rest Heart: RRR Lung: decreased breath sounds at the bases Abd: soft, nontender Ext: no edema CBC, BMP 01/22/18 05:30 01/21/18 15:23 Active Medications Albuterol Sulfate (Ventolin 0.083% Nebulizer Soln -) 1 amp NEB Q4H PRN PRN Reason: SHORT OF BREATH/WHEEZING Albuterol/Ipratropium (Duoneb -) 1 amp NEB RQID [facility] Last Admin: 01/23/18 07:31 Dose: 1 amp Aspirin (Ecotrin -) 81 mg PO DAILY [facility] Last Admin: 01/23/18 09:49 Dose: 81 mg Atorvastatin Calcium (Lipitor -) 80 mg PO HS [facility] Last Admin: 01/22/18 21:37 Dose: 80 mg Budesonide/Formoterol Fumarate (Symbicort 160/4.5mcg -) 2 puff IH BID [facility] Last Admin: 01/23/18 09:50 Dose: 2 puff Bupropion HCl (Wellbutrin Xl -) 300 mg PO DAILY [facility] Last Admin: 01/23/18 09:50 Dose: 300 mg Fluoxetine HCl (Prozac -) 40 mg PO DAILY [facility] Last Admin: 01/23/18 09:51 Dose: 40 mg Methylprednisolone Sodium Succinate (Solu-Medrol -) 40 mg IVPUSH Q8H-IV [facility] Last Admin: 01/23/18 09:50 Dose: 40 mg Metoprolol Tartrate (Lopressor -) 25 mg PO BID [facility] Last Admin: 01/23/18 09:49 Dose: 25 mg Ranolazine (Ranexa -) 500 mg PO BID [facility] Last Admin: 01/23/18 10:10 Dose: 500 mg Ticagrelor (Brilinta -) 90 mg PO BID [facility] Last Admin: 01/23/18 09:48 Dose: 90 mg A/P r/o Acute COPD Exacerbation CAD s/p stent HTN Hyperlipidemia - continue medrol for now, change to prednisone in AM and complete 5 day course - inhaled bronchodilators standing and PRN - continue cardiac meds - will need outpt PFTs - DVT prophylaxis Problem List - Problems (1) CAD (coronary artery disease) Code(s): I25.10 - ATHSCL HEART DISEASE OF [place] CORONARY ARTERY W/O ANG PCTRS (2) COPD (chronic obstructive pulmonary disease) Code(s): J44.9 - CHRONIC OBSTRUCTIVE PULMONARY DISEASE, UNSPECIFIED (3) Chest pain Code(s): R07.9 - CHEST PAIN, UNSPECIFIED Qualifiers: Chest pain type: unspecified Qualified Code(s): R07.9 - Chest pain, unspecified (4) HLD (hyperlipidemia) Code(s): E78.5 - HYPERLIPIDEMIA, UNSPECIFIED (5) Shortness of breath Code(s): R06.02 - SHORTNESS OF BREATH
--- NOTE | 2018-01-23 14:17 | PN ---
Progress Note, Physician Chief Complaint: still with sob, constant chest pain but feeling better telemetry nsr History of Present Illness: She is a 72 year old female with a PMH significant for HLD, HTN, CAD s/p NStemi 10/25/17 transferred to [facility] for cath underwent JOYCE to RCA 10/26/17, tremor who has been having several weeks of continuous chest pain, retrosternal non exertional , non radiating without change from position, inspiration or paluation as well as difficulty breathing that is also nonexertional. No fever, chills, cough or sputum. Echo 10/25/17 normal EF. CTA 01/21/18 no PE. +interstitial markings and ground glass appearance. Echo : nlef trace MR/TR - Current Medication List Current Medications: Active Medications Albuterol Sulfate (Ventolin 0.083% Nebulizer Soln -) 1 amp NEB Q4H PRN PRN Reason: SHORT OF BREATH/WHEEZING Albuterol/Ipratropium (Duoneb -) 1 amp NEB RQID [facility] Last Admin: 01/23/18 07:31 Dose: 1 amp Aspirin (Ecotrin -) 81 mg PO DAILY [facility] Last Admin: 01/23/18 09:49 Dose: 81 mg Atorvastatin Calcium (Lipitor -) 80 mg PO HS [facility] Last Admin: 01/22/18 21:37 Dose: 80 mg Budesonide/Formoterol Fumarate (Symbicort 160/4.5mcg -) 2 puff IH BID [facility] Last Admin: 01/23/18 09:50 Dose: 2 puff Bupropion HCl (Wellbutrin Xl -) 300 mg PO DAILY [facility] Last Admin: 01/23/18 09:50 Dose: 300 mg Fluoxetine HCl (Prozac -) 40 mg PO DAILY [facility] Last Admin: 01/23/18 09:51 Dose: 40 mg Methylprednisolone Sodium Succinate (Solu-Medrol -) 40 mg IVPUSH Q8H-IV [facility] Last Admin: 01/23/18 09:50 Dose: 40 mg Metoprolol Tartrate (Lopressor -) 25 mg PO BID [facility] Last Admin: 01/23/18 09:49 Dose: 25 mg Ranolazine (Ranexa -) 500 mg PO BID [facility] Last Admin: 01/23/18 10:10 Dose: 500 mg Ticagrelor (Brilinta -) 90 mg PO BID [facility] Last Admin: 01/23/18 09:48 Dose: 90 mg - Objective Vital Signs: Vital Signs Temperature 98 F 01/23/18 13:32 Pulse Rate 76 01/23/18 13:32 Respiratory Rate 16 01/23/18 13:32 Blood Pressure 112/53 L 01/23/18 13:32 O2 Sat by Pulse Oximetry (%) 100 01/23/18 10:00 Constitutional: Yes: No Distress, Calm Eyes: Yes: Conjunctiva Clear, EOM Intact HENT: Yes: Normocephalic Neck: Yes: Supple, Trachea Midline Cardiovascular: Yes: Regular Rate and Rhythm Respiratory: Yes: CTA Bilaterally, Diminished Gastrointestinal: Yes: Normal Bowel Sounds, Soft Musculoskeletal: Yes: WNL Extremities: Yes: WNL Edema: No Peripheral Pulses WNL: Yes Labs: CBC, BMP 01/22/18 05:30 01/21/18 15:23 INR, PTT INR 0.93 (0.83-1.09) 01/21/18 12:06 Assessment/Plan She is a 72 year old female with a PMH significant for HLD, HTN, CAD s/p NSTEMI 10/25/17 transferred to [facility] for cath underwent JOYCE to RCA 10/26/17, tremor who has been having several weeks of continuous chest pain, retrosternal non exertional , non radiating without change from position, inspiration or paluation as well as difficulty breathing that is also nonexertional. No fever, chills, cough or sputum. Echo 10/25/17 normal EF. Plan: 1. CAD-continue asa and plavix. Her chest pain is atypical for angina, first set kobe negative. -low risk given the chronicity of symptoms. -ECG is abnormal but unchanged. -continue outpatient regimen for now. -she has 50% stenosis of the LAD, continue statin. -kobe negative for ACS. No need for telemetry monitoring. -Echo is unremarkable. -CV status is stable. Will see as needed. 2. shortness of breath- CXR and pro bnp unremarkable, no evidence of CHF. -pulm eval appreciated -CTA negative for PE. Call us with questions.
[2018-01-23] MEDS: ATORVASTATIN CA 80 MG TABLET (FP) PO SCH (21:36)
[2018-01-24] MEDS: methylPREDNISolone NA SUCC 40 MG/1 ML VIAL IVPUSH SCH (01:03)
[2018-01-24] MEDS ORDERED: PT OWN MED DRAWER 7, Y5N ONE ×3 (04:58→18:43)
[2018-01-24] MEDS: ALBUTEROL SO4 2.5/IPRATROPIUM 0.5 INH SOL 3 ML VIAL.NEB. NEB SCH ×3 (08:20→15:50)
--- NOTE | 2018-01-24 09:00 | DS ---
Physical Examination Vital Signs: Vital Signs Temperature 98.1 F 01/24/18 08:29 Pulse Rate 93 H 01/24/18 08:29 Respiratory Rate 16 01/24/18 08:29 Blood Pressure 155/128 H 01/24/18 08:29 O2 Sat by Pulse Oximetry (%) 96 01/23/18 21:00 Cardiovascular: Yes: Regular Rate and Rhythm Respiratory: Yes: Regular, CTA Bilaterally Gastrointestinal: Yes: Normal Bowel Sounds, Soft Labs: CBC, BMP 01/22/18 05:30 01/21/18 15:23 Discharge Summary Reason For Visit: CHEST PAIN Current Active Problems CAD (coronary artery disease) (Acute) COPD (chronic obstructive pulmonary disease) (Acute) Chest pain (Acute) HLD (hyperlipidemia) (Acute) Shortness of breath (Acute) Tremors of nervous system (Acute) Weakness (Acute) Hospital Course: - Problems (1) CAD (coronary artery disease) Assessment/Plan: -Cradio consult noted -Follow CE 2 sets neg -Echo -Same meds Code(s): I25.10 - ATHSCL HEART DISEASE OF [place] CORONARY ARTERY W/O ANG PCTRS (2) HLD (hyperlipidemia) Assessment/Plan: -Lipitor 80 -Pt ran out of meds--compliance stressed Code(s): E78.5 - HYPERLIPIDEMIA, UNSPECIFIED (3) Tremors of nervous system Assessment/Plan: -TFT -NEURO Code(s): R25.1 - TREMOR, UNSPECIFIED (4) Weakness Assessment/Plan: -PT Eval -CCC--SNF EVAL Code(s): R53.1 - WEAKNESS (5) Chest pain Assessment/Plan: -cardio noted -Monitor on tele -Add Ranexa Code(s): R07.9 - CHEST PAIN, UNSPECIFIED Qualifiers: Chest pain type: unspecified Qualified Code(s): R07.9 - Chest pain, unspecified (6) COPD (chronic obstructive pulmonary disease) Assessment/Plan: -add Symbocort -PULM -STEROIDS Code(s): J44.9 - CHRONIC OBSTRUCTIVE PULMONARY DISEASE, UNSPECIFIED Condition: Guarded - Instructions Referrals: Eriberto Conteh MD [Primary Care Provider] - 1 Week - Home Medications Comprehensive Discharge Medication List: Ambulatory Orders Aspirin Coated [Ecotrin -] 81 mg PO DAILY 10/13/15 Bupropion HCl [Wellbutrin Xl -] 300 mg PO DAILY 10/13/15 Fluoxetine HCl 40 mg PO DAILY 10/13/15 Metoprolol Tartrate [Lopressor -] 25 mg PO BID 01/21/18 Ticagrelor [Brilinta -] 90 mg PO BID 01/21/18 Atorvastatin Ca [Lipitor] 80 mg PO HS #30 tablet 01/24/18 Budesonide/Formeterol Fumarate [SYMBICORT 160/4.5mcg -] 2 puff IH BID #1 inhaler 01/24/18 Ipratropium/Albuterol Sulfate [Combivent Respimat Inhal Withams] 4 gm IH QID #1 aer.w.adap 01/24/18 Ranolazine [Ranexa -] 500 mg PO BID #60 tab 01/24/18 predniSONE [Deltasone -] 40 mg PO DAILY #10 tablet 01/24/18
[2018-01-24] MEDS ORDERED: predniSONE 20 MG TABLET (UD) PO SCH (10:00)
[2018-01-24] MEDS: METOPROLOL TARTRATE 25 MG TABLET (FP) PO SCH (10:14)
[2018-01-24] MEDS: TICAGRELOR 90 MG TABLET PO SCH (10:16)
[2018-01-24] MEDS: FLUoxetine HCL 20 MG CAPSULE (FP) PO SCH (10:16)
[2018-01-24] MEDS: BUDESONIDE/FORMETEROL FUMARATE 160/4.5 mcg INHALER IH SCH (10:17)
[2018-01-24] MEDS: ASPIRIN COATED 81 MG TABLET.EC PO SCH (10:21)
--- NOTE | 2018-01-24 13:14 | PN ---
Progress Note (short form) - Note Progress Note: PULMONARY Breathing better today. Feels improvement with nebulizer treatments. Vital Signs Period Temp Pulse Resp BP Sys/Gu Pulse Ox Last 24 Hr 97.6 F-98.7 F 71-93 16-18 108-155/53-128 96 Gen: NAD at rest Heart: RRR Lung: decreased breath sounds at the bases Abd: soft, nontender Ext: no edema CBC, BMP 01/22/18 05:30 01/21/18 15:23 Active Medications Albuterol Sulfate (Ventolin 0.083% Nebulizer Soln -) 1 amp NEB Q4H PRN PRN Reason: SHORT OF BREATH/WHEEZING Albuterol/Ipratropium (Duoneb -) 1 amp NEB RQID [facility] Last Admin: 01/24/18 11:30 Dose: 1 amp Aspirin (Ecotrin -) 81 mg PO DAILY [facility] Last Admin: 01/24/18 10:21 Dose: 81 mg Atorvastatin Calcium (Lipitor -) 80 mg PO HS [facility] Last Admin: 01/23/18 21:36 Dose: 80 mg Budesonide/Formoterol Fumarate (Symbicort 160/4.5mcg -) 2 puff IH BID [facility] Last Admin: 01/24/18 10:17 Dose: 2 puff Bupropion HCl (Wellbutrin Xl -) 300 mg PO DAILY [facility] Last Admin: 01/24/18 10:17 Dose: 300 mg Fluoxetine HCl (Prozac -) 40 mg PO DAILY [facility] Last Admin: 01/24/18 10:16 Dose: 40 mg Metoprolol Tartrate (Lopressor -) 25 mg PO BID [facility] Last Admin: 01/24/18 10:14 Dose: 25 mg Prednisone (Deltasone -) 40 mg PO DAILY [facility] Last Admin: 01/24/18 10:13 Dose: 40 mg Ranolazine (Ranexa -) 500 mg PO BID [facility] Last Admin: 01/23/18 21:36 Dose: 500 mg Ticagrelor (Brilinta -) 90 mg PO BID [facility] Last Admin: 01/24/18 10:16 Dose: 90 mg A/P r/o Acute COPD Exacerbation CAD s/p stent HTN Hyperlipidemia - complete 2 more days of prednisone 40mg daily - inhaled bronchodilators standing and PRN - continue cardiac meds - will need outpt PFTs - DVT prophylaxis Problem List - Problems (1) CAD (coronary artery disease) Code(s): I25.10 - ATHSCL HEART DISEASE OF [place] CORONARY ARTERY W/O ANG PCTRS (2) COPD (chronic obstructive pulmonary disease) Code(s): J44.9 - CHRONIC OBSTRUCTIVE PULMONARY DISEASE, UNSPECIFIED (3) Chest pain Code(s): R07.9 - CHEST PAIN, UNSPECIFIED Qualifiers: Chest pain type: unspecified Qualified Code(s): R07.9 - Chest pain, unspecified (4) HLD (hyperlipidemia) Code(s): E78.5 - HYPERLIPIDEMIA, UNSPECIFIED (5) Shortness of breath Code(s): R06.02 - SHORTNESS OF BREATH
[2018-01-24 18:53] VITALS: BP 127/71; PULSE 86; TEMP 98.7
== END 2018-01-24 19:00 | disposition home health service (06) | DRG 192 ==
LOC: JER 11:22 → JERBED 13:52 → J2W 16:31
PROVIDERS: ADMIT Family Medicine; ATTEND Family Medicine
PROC: 3E0F7GC Introduction of Other Therapeutic Substance into Respiratory Tract, Via Natural or Artificial Opening (ICD-10-PCS; principal; 2018-01-22)
DX: J44.1 Chronic obstructive pulmonary disease with (acute) exacerbation (principal); I25.10 Atherosclerotic heart disease of native coronary artery without angina pectoris; F32.9 Major depressive disorder, single episode, unspecified; E78.5 Hyperlipidemia, unspecified; G25.0 Essential tremor; F41.9 Anxiety disorder, unspecified; Z95.5 Presence of coronary angioplasty implant and graft; Z87.891 Personal history of nicotine dependence; I25.2 Old myocardial infarction; M81.0 Age-related osteoporosis without current pathological fracture
CPT/HCPCS: 36415; 70450-TC; 71046-TC-FY; 71275-TC; 80053; 81003; 81015; 82550; 82553; 82607; 83735; 83880; 84439; 84443; 84481; 84484; 85025; 85610; 87040; 87086; 87186; 93005; 93010; 93306-TC; 94640; 97116-GP; 97161-GP; 99285-25; J7620

== ENCOUNTER 2020-07-04 09:51 | Emergency (ER) | payer OTHER ==
[2020-07-04 09:55] VITALS: BP 140/61; PULSE 73; TEMP 97.8; BMI 19.8
[2020-07-04] MEDS ORDERED: ACETAMINOPHEN 500 MG TABLET (FP) PO ONE (10:13)
[2020-07-04] MEDS ORDERED: LIDOCAINE 5% TOPICAL PATCH TP ONE (10:13)
[2020-07-04] MEDS ORDERED: LIDOCAINE 5% TOPICAL PATCH ONE (10:19)
[2020-07-04] MEDS ORDERED: ACETAMINOPHEN 500 MG TABLET (FP) ONE (10:21)
[2020-07-04] MEDS ORDERED: LIDOCAINE PATCH REMOVAL MC SCH (22:00)
== END 2020-07-04 10:43 | disposition home or self-care (01) ==
LOC: JER 09:51
DX: S39.012A Strain of muscle, fascia and tendon of lower back, initial encounter (principal)
CPT/HCPCS: 99284-25

== ENCOUNTER 2020-07-20 12:22 | Emergency (ER) | payer OTHER ==
[2020-07-20 12:44] VITALS: BP 147/78; PULSE 70; TEMP 98.4; BMI 20.1
[2020-07-20] MEDS ORDERED: ACETAMINOPHEN 500 MG TABLET (FP) PO ONE (13:41)
[2020-07-20] MEDS ORDERED: ACETAMINOPHEN 500 MG TABLET (FP) ONE (13:43)
== END 2020-07-20 13:59 | disposition home or self-care (01) ==
LOC: JERFT 12:22
DX: M54.5 Low back pain (principal)
CPT/HCPCS: 99283-25

== ENCOUNTER 2021-09-02 15:20 | Observation (INO) | payer OTHER ==
[2021-09-02 18:06] LABS: BASO % 0.6 % (0-2.0); EOS % 3.3 % (0-4.5); HEMATOCRIT 38.1 % (32.4-45.2); HEMOGLOBIN 12.9 GM/dL (10.7-15.3); LYMPH % 19.4 % (8-40); MCH 30.3 pg (25.7-33.7); MEAN CELL VOLUME 89.2 fl (80-96); MEAN PLT VOLUME 8.6 fl (7.5-11.1); MONO % 9.8 % (3.8-10.2); NEUT % 66.9 % (42.8-82.8); PLATELET COUNT 267 10^3/uL (134-434); RBC 4.27 M/mm3 (3.60-5.2); RDW 14.4 % (11.6-15.6); WHITE BLOOD COUNT 7.3 K/mm3 (4.0-10.0)
[2021-09-02 18:32] LABS: ALBUMIN 3.6 g/dl (3.4-5.0); BLOOD UREA NITROGEN 21.3 mg/dL (7-18); CALCIUM 9.6 mg/dL (8.5-10.1)
[2021-09-02 18:37] LABS: BILIRUBIN,TOTAL 0.4 mg/dL (0.2-1); TOT PROT 6.5 g/dl (6.4-8.2)
[2021-09-02] MEDS ORDERED: LACTATED RINGERS SOLUTION 1000 ML INFUS.BAG IV ONE (18:52)
[2021-09-02] MEDS ORDERED: ONDANSETRON 4 MG/2 ML VIAL IVPUSH ONE (18:52)
[2021-09-02] MEDS ORDERED: ONDANSETRON 4 MG/2 ML VIAL ONE (18:54)
[2021-09-02 19:13] LABS: EPI CELLS 21 /uL (0-25.1); HYALINE CASTS 1 /uL (0-3.1); URINE APPEARANCE CLEAR; URINE BACTERIA 137 /uL (0-1359); URINE BILIRUBIN NEGATIVE (NEGATIVE); URINE COLOR YELLOW; URINE GLUCOSE (UA) NEGATIVE (NEGATIVE); URINE KETONE TRACE (NEGATIVE); URINE LEUK ESTERASE TRACE (NEGATIVE); URINE NITRITE NEGATIVE (NEGATIVE); URINE PROTEIN NEGATIVE (NEGATIVE); URINE RBC 21 /uL (0-23.9); URINE WBC 17 /uL (0-25.8)
[2021-09-02] MEDS ORDERED: POLYETHYLENE GLYCOL (HEALTHYLAX) 3350 17 GM PACKET PO PRN (22:54)
[2021-09-02] MEDS ORDERED: ACETAMINOPHEN 1000 MG/100 ML BAG IVPB PRN (22:59)
[2021-09-02] MEDS ORDERED: PANTOPRAZOLE SODIUM 40 MG/100 ML BAG IVPB ONE (23:35)
[2021-09-02] MEDS: DEXTROSE 5%-NORMAL SALINE 1,000 ML IV SCH (23:41)
[2021-09-02] MEDS: PANTOPRAZOLE SODIUM 40 MG VIAL IVPUSH SCH (23:41)
[2021-09-03] MEDS ORDERED: ONDANSETRON 4 MG/2 ML VIAL IVPUSH PRN (01:00)
[2021-09-03 03:28] VITALS: BMI 20.9
[2021-09-03] MEDS: PANTOPRAZOLE SODIUM 40 MG VIAL IVPUSH SCH (09:24)
[2021-09-03] MEDS: METOPROLOL TARTRATE 25 MG TABLET (FP) PO SCH ×2 (09:25→21:38)
[2021-09-03] MEDS: ENOXAPARIN NA (PORCINE) 40 MG/0.4 ML DISP.SYRIN SQ SCH (09:25)
[2021-09-03] MEDS: FLUoxetine HCL 20 MG CAPSULE PO SCH (09:25)
[2021-09-03] MEDS: ASPIRIN COATED 81 MG TABLET.EC PO SCH (09:25)
[2021-09-03] MEDS: busPIRone HCL 10 MG TABLET (FP) PO SCH ×2 (09:25→21:38)
[2021-09-03] MEDS: EZETIMIBE 10 MG TABLET (FP) PO SCH (09:25)
[2021-09-03 09:36] LABS: BASO % 0.7 % (0-2.0); EOS % 4.3 % (0-4.5); HEMATOCRIT 35.1 % (32.4-45.2); HEMOGLOBIN 11.5 GM/dL (10.7-15.3); LYMPH % 21.7 % (8-40); MCH 29.6 pg (25.7-33.7); MCHC 32.9 g/dl (32.0-36.0); MEAN CELL VOLUME 90.1 fl (80-96); MEAN PLT VOLUME 9.1 fl (7.5-11.1); MONO % 10.6 % (3.8-10.2); NEUT % 62.7 % (42.8-82.8); PLATELET COUNT 247 10^3/uL (134-434); RBC 3.89 M/mm3 (3.60-5.2); RDW 14.5 % (11.6-15.6); WHITE BLOOD COUNT 6.1 K/mm3 (4.0-10.0)
[2021-09-03 09:47] LABS: INR 0.93 (0.83-1.09); PROTHROMBIN TIME (PATIENT) 10.7 SEC (9.7-13.0)
[2021-09-03 09:49] LABS: ACTIVATED PTT 27.4 SECONDS (25.2-36.5)
[2021-09-03 10:14] LABS: CALCIUM 8.8 mg/dL (8.5-10.1)
[2021-09-03 10:15] LABS: BLOOD UREA NITROGEN 15.3 mg/dL (7-18)
[2021-09-03 10:18] LABS: PHOSPHOROUS 3.3 mg/dL (2.5-4.9)
[2021-09-03 10:22] LABS: MAGNESIUM 2.2 mg/dL (1.8-2.4)
[2021-09-03] MEDS: ATORVASTATIN CA 80 MG TABLET (FP) PO SCH (21:38)
[2021-09-03] MEDS ORDERED: ACETAMINOPHEN 325 MG TABLET (FP) PO PRN (22:54)
[2021-09-04] MEDS: DEXTROSE 5%-NORMAL SALINE 1,000 ML IV SCH (06:07)
[2021-09-04] MEDS: PANTOPRAZOLE SODIUM 40 MG VIAL IVPUSH SCH (09:12)
[2021-09-04] MEDS: FLUoxetine HCL 20 MG CAPSULE PO SCH (09:13)
[2021-09-04] MEDS: METOPROLOL TARTRATE 25 MG TABLET (FP) PO SCH ×2 (09:13→21:09)
[2021-09-04] MEDS: ENOXAPARIN NA (PORCINE) 40 MG/0.4 ML DISP.SYRIN SQ SCH (09:13)
[2021-09-04] MEDS: busPIRone HCL 10 MG TABLET (FP) PO SCH ×2 (09:14→21:09)
[2021-09-04] MEDS: EZETIMIBE 10 MG TABLET (FP) PO SCH (09:14)
[2021-09-04] MEDS: ASPIRIN COATED 81 MG TABLET.EC PO SCH (09:14)
[2021-09-04] MEDS: ATORVASTATIN CA 80 MG TABLET (FP) PO SCH (21:09)
[2021-09-05] MEDS: FLUoxetine HCL 20 MG CAPSULE PO SCH (09:15)
[2021-09-05] MEDS: METOPROLOL TARTRATE 25 MG TABLET (FP) PO SCH (09:15)
[2021-09-05] MEDS: DEXTROSE 5%-NORMAL SALINE 1,000 ML IV SCH (09:15)
[2021-09-05] MEDS: busPIRone HCL 10 MG TABLET (FP) PO SCH (09:16)
[2021-09-05] MEDS: EZETIMIBE 10 MG TABLET (FP) PO SCH (09:16)
[2021-09-05] MEDS: ASPIRIN COATED 81 MG TABLET.EC PO SCH (09:16)
[2021-09-05] MEDS: ENOXAPARIN NA (PORCINE) 40 MG/0.4 ML DISP.SYRIN SQ SCH (09:17)
[2021-09-05] MEDS: PANTOPRAZOLE SODIUM 40 MG VIAL IVPUSH SCH (09:17)
[2021-09-05] MEDS ORDERED: POLYETHYLENE GLYCOL (HEALTHYLAX) 3350 17 GM PACKET PO SCH (14:00)
[2021-09-05 15:38] VITALS: BP 149/77; PULSE 64; TEMP 98.6
[2021-09-06] MEDS ORDERED: PANTOPRAZOLE 20 MG TABLET PO SCH (10:00)
== END 2021-09-05 18:35 | disposition home or self-care (01) ==
LOC: JER 15:20 → JERFT 15:20 → JERBED 22:57 → INTOOBSV 22:57 → J4S 09-03 00:50
PROVIDERS: ADMIT Hospitalist; ATTEND Family Medicine
PROC: 3E023GC Introduction of Other Therapeutic Substance into Muscle, Percutaneous Approach (ICD-10-PCS; principal; 2021-09-02)
PROC: 3E0337Z Introduction of Electrolytic and Water Balance Substance into Peripheral Vein, Percutaneous Approach (ICD-10-PCS; 2021-09-02)
DX: I25.10 Atherosclerotic heart disease of native coronary artery without angina pectoris (principal); I25.2 Old myocardial infarction; Z86.79 Personal history of other diseases of the circulatory system; R53.1 Weakness; R77.8 Other specified abnormalities of plasma proteins; E78.5 Hyperlipidemia, unspecified; F41.8 Other specified anxiety disorders; R63.0 Anorexia; M19.90 Unspecified osteoarthritis, unspecified site; R01.1 Cardiac murmur, unspecified; Z87.891 Personal history of nicotine dependence; K56.41 Fecal impaction; F32.A Depression, unspecified; R63.4 Abnormal weight loss; Z86.010 Personal history of colon polyps; K57.90 Diverticulosis of intestine, part unspecified, without perforation or abscess without bleeding; R82.71 Bacteriuria; R11.0 Nausea
CPT/HCPCS: 0241U-QW; 36415; 70450-TC; 71045-TC-FY; 74176-TC; 80048; 80053; 81003; 83605; 83690; 83735; 84100; 84484; 85025; 85610; 85730; 87086; 87186; 93005; 93010; 96372; 96374; 96375; 96376; 97116-GP; 97161-GP; 99285-25; G0378

== ENCOUNTER 2021-11-03 11:39 | Emergency (ER) | payer OTHER ==
[2021-11-03 12:07] VITALS: BP 144/72; PULSE 71; TEMP 98; BMI 19.5
[2021-11-03] MEDS ORDERED: traMADol HCL 50 MG TABLET PO ONE (13:02)
[2021-11-03] MEDS ORDERED: traMADol HCL 50 MG TABLET ONE (13:05)
== END 2021-11-03 15:20 | disposition home or self-care (01) ==
LOC: JERFT 11:39
DX: S52.532A Colles' fracture of left radius, initial encounter for closed fracture (principal)
CPT/HCPCS: 73070-TC-LT-FY; 73110-TC-LT-FY; 99284-25

== ENCOUNTER 2021-11-09 04:20 | Inpatient (IN) | payer OTHER ==
[2021-11-07 18:13] VITALS: BMI 19.5
[2021-11-09] MEDS ORDERED: MIDAZOLAM HCL 2 MG/2 ML SINGLE DOSE VIAL ONE (09:19)
[2021-11-09] MEDS ORDERED: ROPIVACAINE HCL 0.5% 30ML VIAL ONE (09:20)
[2021-11-09] MEDS ORDERED: PROPOFOL 20 ML ONE ×2 (09:50→10:13)
[2021-11-09] MEDS ORDERED: ceFAZolin SODIUM 1 GM VIAL IVPB ONE (09:55)
[2021-11-09] MEDS ORDERED: ONDANSETRON 4 MG/2 ML VIAL IVPUSH PRN (09:57)
[2021-11-09] MEDS ORDERED: oxyCODONE HCL 5 MG TABLET PO PRN (09:57)
[2021-11-09] MEDS: LACTATED RINGERS SOLUTION 1,000 ML IV SCH (18:50)
[2021-11-10] MEDS: oxyCODONE HCL 5 MG TABLET PO PRN ×2 (04:52→14:39)
[2021-11-10] MEDS ORDERED: KETOROLAC TROMETHAMINE 15 MG/ML VIAL IVPUSH ONE ×2 (09:00→14:39)
[2021-11-10] MEDS: FLUoxetine HCL 20 MG CAPSULE PO SCH (09:51)
[2021-11-10] MEDS: LACTATED RINGERS SOLUTION 1,000 ML IV SCH (09:51)
[2021-11-10] MEDS: METOPROLOL TARTRATE 25 MG TABLET (FP) PO SCH ×2 (09:51→22:17)
[2021-11-10] MEDS: busPIRone HCL 10 MG TABLET (FP) PO SCH ×2 (10:28→22:17)
[2021-11-10] MEDS ORDERED: morphine CARPU-JECT 4 MG/1 ML DISP.SYRIN IVPUSH PRN (14:56)
[2021-11-10 20:28] LABS: BASO % 0.5 % (0-2.0); HEMOGLOBIN 10.2 GM/dL (10.7-15.3); MCH 29.4 pg (25.7-33.7); MEAN CELL VOLUME 89.3 fl (80-96); MEAN PLT VOLUME 9.5 fl (7.5-11.1); MONO % 11.5 % (3.8-10.2); PLATELET COUNT 241 10^3/uL (134-434); RBC 3.48 M/mm3 (3.60-5.2); RDW 14.5 % (11.6-15.6); WHITE BLOOD COUNT 8.8 K/mm3 (4.0-10.0)
[2021-11-10 20:45] LABS: CALCIUM 8.8 mg/dL (8.5-10.1)
[2021-11-10 20:46] LABS: ALBUMIN 2.7 g/dl (3.4-5.0); BLOOD UREA NITROGEN 13.5 mg/dL (7-18)
[2021-11-10 20:51] LABS: BILIRUBIN,TOTAL 0.6 mg/dL (0.2-1); TOT PROT 5.5 g/dl (6.4-8.2)
[2021-11-10] MEDS: morphine SULFATE 4 MG/ML VIAL IVPUSH PRN (22:17)
[2021-11-11] MEDS: LACTATED RINGERS SOLUTION 1,000 ML IV SCH ×2 (05:41→09:28)
[2021-11-11] MEDS: morphine SULFATE 4 MG/ML VIAL IVPUSH PRN ×3 (05:42→22:41)
[2021-11-11 09:11] LABS: HEMATOCRIT 30.9 % (32.4-45.2); HEMOGLOBIN 10.3 GM/dL (10.7-15.3); MCH 29.9 pg (25.7-33.7); MCHC 33.3 g/dl (32.0-36.0); MEAN CELL VOLUME 89.7 fl (80-96); MEAN PLT VOLUME 9.5 fl (7.5-11.1); PLATELET COUNT 235 10^3/uL (134-434); RBC 3.45 M/mm3 (3.60-5.2); RDW 14.8 % (11.6-15.6)
[2021-11-11 09:37] LABS: ALBUMIN 2.6 g/dl (3.4-5.0)
[2021-11-11 09:38] LABS: BLOOD UREA NITROGEN 12.2 mg/dL (7-18)
[2021-11-11 09:40] LABS: CREATININE 0.8 mg/dL (0.55-1.3)
[2021-11-11 09:41] LABS: TOT PROT 5.2 g/dl (6.4-8.2)
[2021-11-11 09:42] LABS: BILIRUBIN,TOTAL 0.7 mg/dL (0.2-1)
[2021-11-11 09:44] LABS: CALCIUM 8.8 mg/dL (8.5-10.1)
[2021-11-11] MEDS: busPIRone HCL 10 MG TABLET (FP) PO SCH ×2 (11:27→23:30)
[2021-11-11] MEDS: METOPROLOL TARTRATE 25 MG TABLET (FP) PO SCH ×2 (11:28→22:42)
[2021-11-11] MEDS: DOCUSATE SODIUM 100 MG CAPSULE (FP) PO SCH (11:28)
[2021-11-11] MEDS: POLYETHYLENE GLYCOL (HEALTHYLAX) 3350 17 GM PACKET PO SCH (11:28)
[2021-11-11] MEDS: EZETIMIBE 10 MG TABLET (FP) PO SCH (12:40)
[2021-11-11] MEDS ORDERED: FLUoxetine HCL 20 MG CAPSULE PO SCH (14:00)
[2021-11-11] MEDS: FLUoxetine HCL 20 MG CAPSULE PO SCH (19:33)
[2021-11-11] MEDS: ATORVASTATIN CA 80 MG TABLET (FP) PO SCH (22:42)
[2021-11-12] MEDS: LACTATED RINGERS SOLUTION 1,000 ML IV SCH ×2 (01:54→15:22)
[2021-11-12] MEDS: morphine SULFATE 4 MG/ML VIAL IVPUSH PRN ×2 (09:01→16:22)
[2021-11-12] MEDS: DOCUSATE SODIUM 100 MG CAPSULE (FP) PO SCH (11:26)
[2021-11-12] MEDS: EZETIMIBE 10 MG TABLET (FP) PO SCH (11:26)
[2021-11-12] MEDS: METOPROLOL TARTRATE 25 MG TABLET (FP) PO SCH ×2 (11:26→21:00)
[2021-11-12] MEDS: POLYETHYLENE GLYCOL (HEALTHYLAX) 3350 17 GM PACKET PO SCH (11:26)
[2021-11-12] MEDS: busPIRone HCL 10 MG TABLET (FP) PO SCH ×2 (11:26→21:48)
[2021-11-12] MEDS: ATORVASTATIN CA 80 MG TABLET (FP) PO SCH (21:48)
[2021-11-13] MEDS: morphine SULFATE 4 MG/ML VIAL IVPUSH PRN (09:11)
[2021-11-13] MEDS: METOPROLOL TARTRATE 25 MG TABLET (FP) PO SCH ×2 (11:04→22:02)
[2021-11-13] MEDS: DOCUSATE SODIUM 100 MG CAPSULE (FP) PO SCH (11:05)
[2021-11-13] MEDS: EZETIMIBE 10 MG TABLET (FP) PO SCH (11:05)
[2021-11-13] MEDS: busPIRone HCL 10 MG TABLET (FP) PO SCH ×2 (11:05→23:01)
[2021-11-13] MEDS: POLYETHYLENE GLYCOL (HEALTHYLAX) 3350 17 GM PACKET PO SCH (11:05)
[2021-11-13] MEDS: FLUoxetine HCL 20 MG CAPSULE PO SCH ×5 (11:07→17:46)
[2021-11-13] MEDS ORDERED: REMDESIVIR 200 MG in SODIUM CHLORIDE 250 ML IVPB ONE ×2 (11:55→14:00)
[2021-11-13] MEDS: DEXAMETHASONE 4 MG TABLET (FP) PO SCH (13:48)
[2021-11-13 17:26] LABS: BASO % 0.8 % (0-2.0); EOS % 4.7 % (0-4.5); HEMATOCRIT 31.9 % (32.4-45.2); HEMOGLOBIN 10.6 GM/dL (10.7-15.3); LYMPH % 15.8 % (8-40); MCH 29.4 pg (25.7-33.7); MCHC 33.2 g/dl (32.0-36.0); MEAN CELL VOLUME 88.6 fl (80-96); MEAN PLT VOLUME 9.1 fl (7.5-11.1); MONO % 8.5 % (3.8-10.2); NEUT % 70.2 % (42.8-82.8); PLATELET COUNT 260 10^3/uL (134-434); RDW 14.7 % (11.6-15.6); WHITE BLOOD COUNT 6.5 K/mm3 (4.0-10.0)
[2021-11-13 17:51] LABS: CALCIUM 8.5 mg/dL (8.5-10.1)
[2021-11-13 17:52] LABS: BLOOD UREA NITROGEN 8.4 mg/dL (7-18)
[2021-11-13 17:55] LABS: CREATININE 0.8 mg/dL (0.55-1.3)
[2021-11-13] MEDS: ATORVASTATIN CA 80 MG TABLET (FP) PO SCH (22:02)
[2021-11-14 10:26] LABS: BASO % 0.1 % (0-2.0); EOS % 0.1 % (0-4.5); HEMATOCRIT 32.1 % (32.4-45.2); HEMOGLOBIN 10.4 GM/dL (10.7-15.3); LYMPH % 10.4 % (8-40); MCHC 32.5 g/dl (32.0-36.0); MEAN CELL VOLUME 89.4 fl (80-96); MEAN PLT VOLUME 9.8 fl (7.5-11.1); MONO % 8.2 % (3.8-10.2); NEUT % 81.2 % (42.8-82.8); PLATELET COUNT 293 10^3/uL (134-434); RBC 3.59 M/mm3 (3.60-5.2); RDW 14.6 % (11.6-15.6); WHITE BLOOD COUNT 5.9 K/mm3 (4.0-10.0)
[2021-11-14 10:47] LABS: CALCIUM 9.4 mg/dL (8.5-10.1)
[2021-11-14 10:48] LABS: ALBUMIN 2.9 g/dl (3.4-5.0); BLOOD UREA NITROGEN 12.2 mg/dL (7-18); MAGNESIUM 2.1 mg/dL (1.8-2.4)
[2021-11-14 10:51] LABS: CREATININE 0.8 mg/dL (0.55-1.3); PHOSPHOROUS 3.1 mg/dL (2.5-4.9)
[2021-11-14 10:52] LABS: BILIRUBIN,TOTAL 0.8 mg/dL (0.2-1)
[2021-11-14 10:53] LABS: TOT PROT 5.9 g/dl (6.4-8.2)
[2021-11-14] MEDS: DOCUSATE SODIUM 100 MG CAPSULE (FP) PO SCH (11:30)
[2021-11-14] MEDS: EZETIMIBE 10 MG TABLET (FP) PO SCH (11:30)
[2021-11-14] MEDS: FLUoxetine HCL 20 MG CAPSULE PO SCH (11:30)
[2021-11-14] MEDS: POLYETHYLENE GLYCOL (HEALTHYLAX) 3350 17 GM PACKET PO SCH (11:30)
[2021-11-14] MEDS: METOPROLOL TARTRATE 25 MG TABLET (FP) PO SCH ×2 (11:30→21:48)
[2021-11-14] MEDS: DEXAMETHASONE 4 MG TABLET (FP) PO SCH (11:31)
[2021-11-14] MEDS: morphine SULFATE 4 MG/ML VIAL IVPUSH PRN (11:32)
[2021-11-14] MEDS: busPIRone HCL 10 MG TABLET (FP) PO SCH ×2 (11:32→21:48)
[2021-11-14] MEDS ORDERED: REMDESIVIR 100 MG in SODIUM CHLORIDE 250 ML IVPB SCH (15:00)
[2021-11-14] MEDS: ATORVASTATIN CA 80 MG TABLET (FP) PO SCH (21:48)
[2021-11-14] MEDS: oxyCODONE HCL 5 MG TABLET PO PRN (21:48)
[2021-11-14 23:47] VITALS: RESP 20
[2021-11-15 07:14] VITALS: BP 129/76; PULSE 72; TEMP 97.6
[2021-11-15] MEDS: DEXAMETHASONE 4 MG TABLET (FP) PO SCH (09:52)
[2021-11-15] MEDS: POLYETHYLENE GLYCOL (HEALTHYLAX) 3350 17 GM PACKET PO SCH (09:52)
[2021-11-15] MEDS: METOPROLOL TARTRATE 25 MG TABLET (FP) PO SCH (09:53)
[2021-11-15] MEDS: FLUoxetine HCL 20 MG CAPSULE PO SCH (09:53)
[2021-11-15] MEDS: busPIRone HCL 10 MG TABLET (FP) PO SCH (09:53)
[2021-11-15] MEDS: DOCUSATE SODIUM 100 MG CAPSULE (FP) PO SCH (09:53)
[2021-11-15] MEDS: EZETIMIBE 10 MG TABLET (FP) PO SCH (09:53)
== END 2021-11-15 11:54 | DRG 500 ==
LOC: JASU-SURG 04:20 → JASUSAT 04:20 → J8W 17:31
PROVIDERS: ADMIT Orthopaedic Surgery; ATTEND Internal Medicine
PROC: 0L860ZZ Division of Left Lower Arm and Wrist Tendon, Open Approach (ICD-10-PCS; 2021-11-09)
PROC: 0PSJ04Z Reposition Left Radius with Internal Fixation Device, Open Approach (ICD-10-PCS; principal; 2021-11-09 09:00)
PROC: XW033E5 Introduction of Remdesivir Anti-infective into Peripheral Vein, Percutaneous Approach, New Technology Group 5 (ICD-10-PCS; 2021-11-13)
PROC: 3E0333Z Introduction of Anti-inflammatory into Peripheral Vein, Percutaneous Approach (ICD-10-PCS; 2021-11-13)
DX: S52.592A Other fractures of lower end of left radius, initial encounter for closed fracture (principal); U07.1 COVID-19; I10 Essential (primary) hypertension; E78.5 Hyperlipidemia, unspecified; I25.10 Atherosclerotic heart disease of native coronary artery without angina pectoris; J44.9 Chronic obstructive pulmonary disease, unspecified; K57.90 Diverticulosis of intestine, part unspecified, without perforation or abscess without bleeding; F41.8 Other specified anxiety disorders; G89.18 Other acute postprocedural pain; G25.0 Essential tremor; K59.00 Constipation, unspecified; R09.02 Hypoxemia; Z85.038 Personal history of other malignant neoplasm of large intestine; X58.XXXA Exposure to other specified factors, initial encounter; Y92.89 Other specified places as the place of occurrence of the external cause
CPT/HCPCS: 36415; 71045-TC-FY; 80048; 80053; 82728; 83735; 84100; 85025; 85027; 85379; 86140; 93005; 93010; 94760; 94761; 97116-GP; 97161-GP; C9399

== ENCOUNTER 2023-11-03 11:44 | Inpatient (IN) | payer OTHER ==
[2023-11-03] MEDS ORDERED: ACETAMINOPHEN INJECTION 100 ML IVPB ONE (12:42)
[2023-11-03] MEDS: SODIUM CHLORIDE 0.9% 500 ML INFUS.BAG IV ONE (12:55)
[2023-11-03] MEDS: ACETAMINOPHEN 1000 MG/100 ML BAG IVPB ONE (12:55)
[2023-11-03 13:08] LABS: BASO % 0.3 % (0-2.0); EOS % 0.1 % (0-4.5); HEMATOCRIT 35.8 % (32.4-45.2); HEMOGLOBIN 11.8 GM/dL (10.7-15.3); MCH 28.4 pg (25.7-33.7); MCHC 33.1 g/dl (32.0-36.0); MEAN CELL VOLUME 85.9 fl (80-96); MEAN PLT VOLUME 8.9 fl (7.5-11.1); NEUT % 83.6 % (42.8-82.8); PLATELET COUNT 327 10^3/uL (134-434); RBC 4.17 M/mm3 (3.60-5.2); RDW 14.8 % (11.6-15.6); WHITE BLOOD COUNT 12.5 K/mm3 (4.0-10.0)
[2023-11-03 13:15] LABS: INR 1.09 (0.83-1.09); PROTHROMBIN TIME (PATIENT) 12.3 SEC (9.7-13.0)
[2023-11-03 13:18] LABS: ACTIVATED PTT 24.7 SECONDS (25.2-36.5)
[2023-11-03 13:34] LABS: POTASSIUM 3.8 mmol/L (3.5-5.1)
[2023-11-03 13:36] LABS: ALBUMIN 3.1 g/dl (3.4-5.0); BLOOD UREA NITROGEN 15.5 mg/dL (7-18); CALCIUM 9.1 mg/dL (8.5-10.1); MAGNESIUM 1.7 mg/dL (1.8-2.4)
[2023-11-03 13:40] LABS: CREATININE 0.8 mg/dL (0.55-1.3)
[2023-11-03 13:42] LABS: BILIRUBIN,TOTAL 1.3 mg/dL (0.2-1); TOT PROT 5.9 g/dl (6.4-8.2)
[2023-11-03] MEDS ORDERED: HYDROmorphone HCL CARPU-JECT 2 MG/1 ML DISP.SYRIN ONE ×2 (14:05→16:39)
[2023-11-03] MEDS: HYDROmorphone HCl 2 MG/ML VIAL IVPUSH ONE ×2 (14:08→16:44)
[2023-11-03] MEDS ORDERED: MAGNESIUM SULFATE IN WATER 2 GM/50 ML IVPB IVPB ONE (14:44)
[2023-11-03] MEDS: MAGNESIUM SULFATE IN WATER 2 GM/50 ML IVPB IVPB ONE (14:50)
[2023-11-03] MEDS ORDERED: KETOROLAC TROMETHAMINE 15 MG/ML VIAL ONE (16:41)
[2023-11-03] MEDS: KETOROLAC TROMETHAMINE 15 MG/ML VIAL IVPUSH ONE (16:44)
[2023-11-03] MEDS: D5-1/2NS+20 MEQ KCL - 20 MEQ/1,000 ML INFUS.BAG IV SCH (18:25)
[2023-11-03] MEDS ORDERED: oxyCODONE HCL 5 MG TABLET ONE (20:47)
[2023-11-03] MEDS ORDERED: METOPROLOL TARTRATE 25 MG TABLET (FP) ONE (23:03)
[2023-11-03] MEDS ORDERED: HEPARIN NA (PORCINE) 5,000 UNITS/ML 1ML VIAL ONE (23:04)
[2023-11-03] MEDS: METOPROLOL TARTRATE 25 MG TABLET (FP) PO SCH (23:13)
[2023-11-03] MEDS: HEPARIN NA (PORCINE) 5,000 UNITS/ML 1ML VIAL SQ SCH (23:13)
[2023-11-04] MEDS: oxyCODONE HCL 5 MG TABLET PO PRN (01:43)
[2023-11-04 09:02] LABS: BASO % 0.5 % (0-2.0); EOS % 1.5 % (0-4.5); LYMPH % 13.2 % (8-40); MCH 29.3 pg (25.7-33.7); MCHC 33.5 g/dl (32.0-36.0); MEAN CELL VOLUME 87.4 fl (80-96); MEAN PLT VOLUME 9.2 fl (7.5-11.1); MONO % 9.8 % (3.8-10.2); PLATELET COUNT 229 10^3/uL (134-434); RBC 3.43 M/mm3 (3.60-5.2); RDW 14.7 % (11.6-15.6); WHITE BLOOD COUNT 8.3 K/mm3 (4.0-10.0)
[2023-11-04 09:08] LABS: INR 0.96 (0.83-1.09); PROTHROMBIN TIME (PATIENT) 11.1 SEC (9.7-13.0)
[2023-11-04 09:20] LABS: PH,URINE 5.5 (5.0-8.0); URINE APPEARANCE CLEAR; URINE BILIRUBIN NEGATIVE (NEGATIVE); URINE COLOR DK YELLOW; URINE GLUCOSE (UA) NEGATIVE (NEGATIVE); URINE KETONE NEGATIVE (NEGATIVE); URINE LEUK ESTERASE NEGATIVE (NEGATIVE); URINE NITRITE NEGATIVE (NEGATIVE); URINE PROTEIN TRACE (NEGATIVE)
[2023-11-04 09:23] LABS: POTASSIUM 3.9 mmol/L (3.5-5.1)
[2023-11-04 09:27] LABS: CALCIUM 8.5 mg/dL (8.5-10.1)
[2023-11-04 09:28] LABS: ALBUMIN 2.6 g/dl (3.4-5.0); BLOOD UREA NITROGEN 17.5 mg/dL (7-18); MAGNESIUM 2.1 mg/dL (1.8-2.4)
[2023-11-04 09:30] LABS: CREATININE 0.7 mg/dL (0.55-1.3)
[2023-11-04 09:33] LABS: TOT PROT 5.2 g/dl (6.4-8.2)
[2023-11-04] MEDS: PANTOPRAZOLE 20 MG TABLET PO SCH (09:44)
[2023-11-04] MEDS: ACETAMINOPHEN 500 MG TABLET (FP) PO PRN (14:05)
[2023-11-05 09:29] LABS: BASO % 0.4 % (0-2.0); EOS % 1.3 % (0-4.5); HEMATOCRIT 29.6 % (32.4-45.2); HEMOGLOBIN 9.8 GM/dL (10.7-15.3); LYMPH % 11.8 % (8-40); MCH 29.2 pg (25.7-33.7); MCHC 33.1 g/dl (32.0-36.0); MEAN CELL VOLUME 88.1 fl (80-96); MEAN PLT VOLUME 9.4 fl (7.5-11.1); MONO % 9.5 % (3.8-10.2); PLATELET COUNT 222 10^3/uL (134-434); RBC 3.36 M/mm3 (3.60-5.2); RDW 14.6 % (11.6-15.6); WHITE BLOOD COUNT 9.1 K/mm3 (4.0-10.0)
[2023-11-05 09:49] LABS: ALBUMIN 2.6 g/dl (3.4-5.0); BLOOD UREA NITROGEN 13.3 mg/dL (7-18); CALCIUM 8.2 mg/dL (8.5-10.1)
[2023-11-05] MEDS ORDERED: ceFAZolin SODIUM 1 GM VIAL ONE (09:49)
[2023-11-05] MEDS ORDERED: DEXAMETHASONE SOD PHOSPHATE 4 MG/1 ML VIAL ONE (09:49)
[2023-11-05] MEDS ORDERED: ONDANSETRON 4 MG/2 ML VIAL ONE (09:49)
[2023-11-05] MEDS ORDERED: SODIUM CHLORIDE 0.9% P/F 10 ML VIAL IJ ONE (09:51)
[2023-11-05 09:52] LABS: BILIRUBIN,DIRECT 0.2 mg/dL (0.0-0.2); CREATININE 0.6 mg/dL (0.55-1.3)
[2023-11-05 09:55] LABS: BILIRUBIN,TOTAL 0.8 mg/dL (0.2-1)
[2023-11-05] MEDS ORDERED: MIDAZOLAM HCL 2 MG/2 ML SINGLE DOSE VIAL ONE (09:57)
[2023-11-05] MEDS ORDERED: ONDANSETRON 4 MG/2 ML VIAL IVPUSH PRN ×2 (09:58→14:05)
[2023-11-05] MEDS ORDERED: DEXAMETHASONE SOD PHOSPHATE 10 MG/1 ML VIAL ONE (10:17)
[2023-11-05] MEDS ORDERED: ROPIVACAINE HCL 0.5% 30ML VIAL ONE (10:17)
[2023-11-05] MEDS: ceFAZolin SODIUM 1 GM VIAL IVPB ONE (11:15)
[2023-11-05] MEDS ORDERED: ACETAMINOPHEN 500 MG TABLET (FP) PO PRN (14:05)
[2023-11-05] MEDS: LACTATED RINGERS SOLUTION 1,000 ML IV SCH ×2 (14:11→14:54)
[2023-11-05] MEDS: D5-1/2NS+20 MEQ KCL - 20 MEQ/1,000 ML INFUS.BAG IV SCH (15:26)
[2023-11-05 15:37] VITALS: BMI 16.9
[2023-11-05] MEDS: oxyCODONE HCL 5 MG TABLET PO PRN (21:46)
[2023-11-05] MEDS: METOPROLOL TARTRATE 25 MG TABLET (FP) PO SCH (21:47)
[2023-11-06 10:01] LABS: ALBUMIN 2.3 g/dl (3.4-5.0)
[2023-11-06 10:06] LABS: BILIRUBIN,DIRECT 0.3 mg/dL (0.0-0.2); TOT PROT 4.6 g/dl (6.4-8.2)
[2023-11-06 10:10] LABS: BILIRUBIN,TOTAL 0.9 mg/dL (0.2-1)
[2023-11-06] MEDS: busPIRone HCL 10 MG TABLET (FP) PO SCH (10:40)
[2023-11-06] MEDS: ASPIRIN COATED 81 MG TABLET.EC PO SCH (10:40)
[2023-11-06] MEDS: PANTOPRAZOLE 20 MG TABLET PO SCH (10:41)
[2023-11-06] MEDS: IRON SUCROSE INJECTION 200 MG in SODIUM CHLORIDE 100 ML IVPB ONE (10:41)
[2023-11-06] MEDS: ENOXAPARIN NA (PORCINE) 40 MG/0.4 ML DISP.SYRIN SQ SCH (10:41)
[2023-11-06] MEDS ORDERED: FLUoxetine HCL 20 MG CAPSULE PO SCH (14:00)
[2023-11-06 18:07] LABS: GLIADIN ANTIBODY IGA 2 units (0-19); GLIADIN ANTIBODY IGG 2 units (0-19); TRANSGLUTAMINASE IGG < 2 U/mL (0-5)
[2023-11-06 19:34] VITALS: RESP 18
[2023-11-06] MEDS: FLUoxetine HCL 20 MG CAPSULE PO ONE (22:16)
[2023-11-07 09:37] LABS: ALBUMIN 2.3 g/dl (3.4-5.0)
[2023-11-07 09:38] LABS: BILIRUBIN,DIRECT 0.3 mg/dL (0.0-0.2)
[2023-11-07 09:42] LABS: BILIRUBIN,TOTAL 0.9 mg/dL (0.2-1); TOT PROT 4.4 g/dl (6.4-8.2)
[2023-11-07 15:25] VITALS: BP 116/59; PULSE 95; TEMP 98.8
== END 2023-11-07 19:24 | DRG 494 ==
LOC: JER 11:44 → JERBED 14:16 → J8W 11-04 01:28
PROVIDERS: ADMIT Family Medicine; ATTEND Family Medicine
PROC: 0PSC04Z Reposition Right Humeral Head with Internal Fixation Device, Open Approach (ICD-10-PCS; principal; 2023-11-05 08:30)
DX: S42.291A Other displaced fracture of upper end of right humerus, initial encounter for closed fracture (principal); I10 Essential (primary) hypertension; I25.2 Old myocardial infarction; J44.9 Chronic obstructive pulmonary disease, unspecified; I25.10 Atherosclerotic heart disease of native coronary artery without angina pectoris; R79.89 Other specified abnormal findings of blood chemistry; W19.XXXA Unspecified fall, initial encounter; Y93.89 Activity, other specified; Y92.89 Other specified places as the place of occurrence of the external cause; Y99.8 Other external cause status
CPT/HCPCS: 36415; 70450-TC; 71045-TC-FY; 72125-TC; 72170-TC-FY; 73000-TC-RT-FY; 73030-TC-RT-FY; 73070-TC-RT-FY; 76000-TC-FY; 76705-TC; 80053; 80076; 81003; 82105; 82550; 82553; 82728; 82784; 83516; 83540; 83550; 83735; 84443; 84484; 85025; 85610; 85730; 86038; 86705; 86803; 86850; 86900; 86901; 87086; 87340; 87517; 87902; 93005; 93010; 94760; 97116-GP; 97161-GP; 99285-25; C1713; J0131; J1100; J1644; J1756